=== PATIENT | female | born 1975 | race African-American/Black ===

== ENCOUNTER 2017-02-05 10:56 | Observation (INO) | payer OTHER ==
--- NOTE | 2017-02-05 11:25 | PDOC ---
Attending Attestation - Resident Resident Name: Sherwin Abdul - HPI HPI: 02/05/17 14:38 41 y/o female presents to ED referred by her PCP after he noted tht pt had left side weakness and decreased senation on his physical exam.Pt also hd difficulty performing finger to nose during his exam. Pt also reported that she had an episode of loss of vision in her rt eye today lasting a few seconds. Pt went to see hep pcp who subsequently refered her to the ED for additional tests.Pt has a history of migraine headaches and as had a headache for the last week that is not resolving, pt describes a 8/10 headache,last took meds yesterady, pt taking imitrex with no relief of headache Pt denies fever, sob, chest pain - Physicial Exam PE: 02/05/17 14:43 HEENT:NCAT,ROBERT, EOMI neck: supple Lungs: + bs smitha cta Heart: S1S2 regula Abd: + bs abd soft no guarding or rigidity Neuro: Pt is alert and oriented x3, Ramirez's left side weakness, dec sensation on the left side, pt with rt hemianopsia,PT with NIHSS of 2, nl gait - Critical Care Time Total Critical Care Time: 30 Critical Care Statement: The care of this patient involved high complexity decision making to prevent further life threatening deterioration of the patient 's condition and/or to evalute & treat vital organ system(s) failure or risk of failure. - Medical Decision Making 02/05/17 14:49 41 y/o female presents to ED for evaluation of a headache x 1 week, loss of vision today around 4am lasted about 5 seconds, pt also has new left side weakness and dec sensation 02/05/17 14:[address] of head immediately to r/o acute cva/vs TIA, vs otehr cranial abnormality explainung her severe headache, vision loss. Ct results noted, case discussed with Neurology recommends admission pt may be having an acute cva but is out o the window for TPA, He wants pt to receive depakote 500mg now. along with a baby ASA, plavix 75 mg and IV fluid. If this does not help her headache he also recommends giving her 1 gram of IV magnesium NIH Stroke Scale - Last Known Well Date/Time & Onset Date Last Known Well: 02/05/17 - Initial Evaluation Ask patient to open & close eyes; make fist and let go: Obeys both correctly Best gaze (horizontal eye movement): Normal Visual field testing: Partial hemianopia Facial paresis (Show teeth/raise eyebrows/close eyes tight): Normal symmetrical movement Motor Function: Left Arm: Normal Motor Function: Right Arm: Normal (extends arm 90 (or 45) degrees for 10 seconds without drift Motor Function: Left Leg: Normal (extends leg 30 degrees for 5 seconds without drift) Motor Function: Right Leg: Normal (extends leg 30 degrees for 5 seconds without drift) Limb Ataxia: No ataxia Sensory(Use pinprick test arms,legs,trunk,face/side to side): Mild to moderate decrease in sensation Best language (Describe picture, name items, read sentences): No Aphasia Dysarthria (read several words): Normal articulation Extinction and Inattention: No abnormality
[2017-02-05 12:09] LABS: INR 1.04 (0.82-1.09); PROTHROMBIN TIME (PATIENT) 11.4 SEC (9.98-11.88)
[2017-02-05 12:15] LABS: TROPONIN I < 0.02 ng/ml (0.00-0.05)
[2017-02-05 12:18] LABS: EOSINOPHIL 1.9 % (0-4.5); MCH 26.5 pg (25.7-33.7); MCHC 32.1 g/dl (32.0-36.0); MEAN CELL VOLUME 82.6 fl (80-96); MEAN PLT VOLUME 7.6 fl (7.5-11.1); NEUTROPHILS 47.3 % (42.8-82.8); PLATELET COUNT 321 K/MM3 (134-434); RDW 16.2 % (11.6-15.6)
--- NOTE | 2017-02-05 12:20 | PDOC ---
History of Present Illness <Bianca Corbin - Last Filed: 02/05/17 15:04> - General History Source: Patient Exam Limitations: No Limitations - History of Present Illness Initial Comments: 02/05/17 12:19 The patient is a 41F with a PMH of asthma and migraines is presenting to the ED with neurologic complaints from her PCP's office. The patient states that 1 week ago she began to develop a worsening headache. She has a hx of migraines and takes Imitrex for this, and when this does not work, she takes excederin. She says she tried to take these medications with no relief. The patient states that 4 am this morning, she could not see out of her R eye. This lasted for a few seconds then went back to normal. At the same time, she states that she had L arm numbness and tingling, which she describes as a "weird feeling" and is still present. She states that her headaches have never lasted this long and have never experienced these symptoms with her headaches. Surg: bonita, gastric bypass, appy Allergies: PCNS Social: Does not smoke, drink, use recreational drugs <Sherwin Abdul - Last Filed: 02/05/17 15:18> - General Chief Complaint: CVA/TIA Stated Complaint: PCP SENT/POSS STROKE Time Seen by Provider: 02/05/17 11:23 NIH Stroke Scale - Last Known Well Date/Time & Onset Date Last Known Well: 02/05/17 Time Last Known Well: 04:00 - Initial Evaluation Level of consciousness: Alert Ask patient the month and their age: Answers both correctly Ask patient to open & close eyes; make fist and let go: Obeys both correctly Best gaze (horizontal eye movement): Normal Visual field testing: Partial hemianopia Facial paresis (Show teeth/raise eyebrows/close eyes tight): Normal symmetrical movement Motor Function: Left Arm: Normal Motor Function: Right Arm: Normal (extends arm 90 (or 45) degrees for 10 seconds without drift Motor Function: Left Leg: Normal (extends leg 30 degrees for 5 seconds without drift) Motor Function: Right Leg: Normal (extends leg 30 degrees for 5 seconds without drift) Limb Ataxia: No ataxia Sensory(Use pinprick test arms,legs,trunk,face/side to side): Mild to moderate decrease in sensation Best language (Describe picture, name items, read sentences): No Aphasia Dysarthria (read several words): Normal articulation Extinction and Inattention: No abnormality - Total Score NIH Stroke Scale Score: 2 <Sherwin Abdul - Last Filed: 02/05/17 15:18> Past History <Bianca Corbin - Last Filed: 02/05/17 15:04> - Past Medical History Asthma: Yes Other medical history: MIGRANES - Surgical History Appendectomy: Yes Cholecystectomy: Yes Gastric Stapling: (GASTRIC BYPASS) - Reproductive History (#): 5 Para: 2 Cervical CA: No Dysfunctional Uterine Bleeding: No Ectopic : No Endometrial CA: No Polycystic Ovaries: No Therapeutic (s) & number: No Tubal Ligation: No Spontaneous : 0 - Immunization History Td Vaccination: No - Psycho/Social/Smoking Cessation Hx Anxiety: No Suicidal Ideation: No Smoking Status: No Smoking History: Never smoked Have you smoked in the past 12 months: No Number of Cigarettes Smoked Daily: 0 Hx Alcohol Use: Yes Drug/Substance Use Hx: No Substance Use Type: Alcohol <Sherwin Abdul - Last Filed: 02/05/17 15:18> - Past Medical History Allergies/Adverse Reactions: Allergies Allergy/AdvReac Type Severity Reaction Status Date / Time Penicillins Allergy Intermediate Verified 02/05/17 10:59 Home Medications: Ambulatory Orders Dicyclomine HCl [Bentyl] 10 mg PO TID PRN #5 capsule 01/07/16 Review of Systems - Review of Systems Able to Perform ROS?: Yes Is the patient limited Guinean proficient: No Constitutional: No: Chills, Fever HEENTM: Yes: Recent change in vision. No: Other (Head trauma) Respiratory: No: Shortness of Breath, SOB with Exertion, SOB at Rest Cardiac (ROS): No: Chest Pain, Palpitations ABD/GI: Yes: Nausea. No: Vomiting, Other (Abd pain) Neurological: No: Other (LOC) <Sherwin Abdul - Last Filed: 02/05/17 15:18> *Physical Exam - Vital Signs Last Vital Signs Temp Pulse Resp BP Pulse Ox 98.2 F 68 19 147/93 100 02/05/17 10:59 02/05/17 10:59 02/05/17 10:59 02/05/17 10:59 02/05/17 10:59 <Bianca Corbin - Last Filed: 02/05/17 15:04> - Vital Signs Last Vital Signs Temp Pulse Resp BP Pulse Ox 98.2 F 68 19 147/93 100 02/05/17 10:59 02/05/17 10:59 02/05/17 10:59 02/05/17 10:59 02/05/17 10:59 - Physical Exam General Appearance: Yes: Nourished, Appropriately Dressed. No: Apparent Distress Respiratory/Chest: positive: Lungs Clear, Normal Breath Sounds. negative: Chest Tender, Accessory Muscle Use Cardiovascular: positive: Regular Rhythm, Regular Rate, S1, S2 Gastrointestinal/Abdominal: positive: Flat, Soft. negative: Tender Extremity: positive: Normal Capillary Refill, Normal Inspection. 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, Fully Oriented, Alert, Normal Mood/ Affect, Numbness, Sensory Deficit (L sided), Finger to Nose (L sided deficits), Other (Motor strength decreased in L side) <Sherwin Abdul - Last Filed: 02/05/17 15:18> Heart Score/ECG Review - ECG Impressions Normal ECG: Yes <Sherwin Abdul - Last Filed: 02/05/17 15:18> ED Treatment Course - LABORATORY CBC & Chemistry Diagram: 02/05/17 11:35 02/05/17 11:30 - ADDITIONAL ORDERS Additional order review: Laboratory Results 02/05/17 02/05/17 02/05/17 11:35 11:35 11:30 INR Sodium 138 Potassium 4.0 Chloride 105 Carbon Dioxide 26 Anion Gap 7 L BUN 12 D Creatinine 0.8 Creat Clearance w eGFR > 60 Random Glucose 88 Calcium 9.0 Total Bilirubin 0.8 D AST 22 ALT 24 D Alkaline Phosphatase 82 Creatine Kinase 192 Creatine Kinase Index 0.7 CK-MB (CK-2) 1.300 Troponin I < 0.02 Total Protein 7.1 Albumin 3.8 Serum , Qual Urine HCG, Qual Negative 02/05/17 02/05/17 11:30 11:30 INR 1.04 Sodium Potassium Chloride Carbon Dioxide Anion Gap BUN Creatinine Creat Clearance w eGFR Random Glucose Calcium Total Bilirubin AST ALT Alkaline Phosphatase Creatine Kinase Creatine Kinase Index CK-MB (CK-2) Troponin I Total Protein Albumin Serum , Qual Negative Urine HCG, Qual 02/05/17 11:35 RBC 4.53 MCV 82.6 MCHC 32.1 RDW 16.2 H MPV 7.6 Neutrophils % 47.3 Lymphocytes % 41.0 H Monocytes % 8.8 Eosinophils % 1.9 Basophils % 1.0 - RADIOLOGY Radiology Studies Ordered: Category Date Time Status HEAD CT WITHOUT CONTRAST [CT] Stat CT Scan 02/05/17 11:28 Completed - Medications Given in the ED: ED Medications Discontinued Medications Generic Name Dose Route Start Last Admin Trade Name Judy PRN Reason Stop Dose Admin Aspirin 81 mg 02/05/17 13:20 02/05/17 13:32 Asa - PO 02/05/17 13:21 81 mg ONCE ONE Administration Sodium Chloride 1,000 ml 02/05/17 13:27 02/05/17 13:32 Normal Saline - IV 02/05/17 13:28 1,000 ml ONCE ONE Administration Valproate Sodium 500 mg 02/05/17 13:21 02/05/17 13:32 Depacon Injection - IVPB 02/05/17 13:22 500 mg ONCE ONE Administration <Bianca Corbin - Last Filed: 02/05/17 15:04> - LABORATORY CBC & Chemistry Diagram: 02/05/17 11:35 02/05/17 11:30 - ADDITIONAL ORDERS Additional order review: Laboratory Results 02/05/17 11:30 INR 1.04 <Sherwin Abdul - Last Filed: 02/05/17 15:18> Medical Decision Making - Medical Decision Making 02/05/17 12:30 Patient is a 41F with a PMH of migraines and asthma who presents to the ED from her PCP's office for suspected stroke/TIA. NIHSS is 2 for R hemianopsia and L sided sensory deficits. The patient also had tremorous L sided finger to nose and decreased motor strength in L side. I called CT and rapidly took the patient to get a CT. She is comfortable but complaining of a slight headache. I will update the patient as results come in. 02/05/17 15:17 Hemipalegic migraine vs. cerebral ischemia per neurologist. Headache has improved from 8 to 6. Magnesium ordered per neurologist recs. Pt is complaining of L sided floaters. R sided hemianopsia has resolved. <Sherwin Abdul - Last Filed: 02/05/17 15:18> *DC/Admit/Observation/Transfer - Discharge Dispostion Admit: Yes <Bianca Corbin - Last Filed: 02/05/17 15:04> - Discharge Dispostion Admit: Yes - Attestations Physician Attestion: 02/05/17 14:47 I, Dr. Sherwin Abdul, attest that this document has been prepared under my direction and personally reviewed by me in its entirety. I further attest, that it accurately reflects all work, treatment, procedures and medical decision -making performed by me. <Sherwin Abdul - Last Filed: 02/05/17 15:18> Diagnosis at time of Disposition: TIA (transient ischemic attack) Qualifiers: Transient cerebral ischemia type: unspecified Qualified Code(s): G45.9 - Transient cerebral ischemic attack, unspecified Cerebrovascular accident (CVA) Qualifiers: CVA mechanism: unspecified Qualified Code(s): I63.9 - Cerebral infarction, unspecified - Discharge Dispostion Condition at time of disposition: Stable - Referrals Referrals: Mahesh Kearney MD [Primary Care Provider] - iMki Price MD [Staff Physician] -
[2017-02-05 12:22] LABS: ALBUMIN 3.8 g/dl (3.4-5.0); ANION GAP 7 (8-16); BILIRUBIN,TOTAL 0.8 mg/dL (0.2-1.0); CO2 26 mmol/L (21-32); CREATININE 0.8 mg/dL (0.55-1.02); GLUCOSE,RANDOM 88 mg/dL (74-106); SGOT/AST 22 U/L (15-37); SGPT/ALT 24 U/L (12-78); TOT PROT 7.1 g/dl (6.4-8.2)
[2017-02-05 12:23] LABS: ALK PHOS 82 U/L (45-117)
[2017-02-05] MEDS ORDERED: ASPIRIN 81 MG CHEWABLE TABLETS PO ONE (13:20)
[2017-02-05] MEDS ORDERED: VALPROATE SODIUM 500 MG/5 ML VIAL IVPB ONE (13:21)
[2017-02-05] MEDS ORDERED: SODIUM CHLORIDE 0.9% 1000 ML INFUS.BAG IV ONE (13:27)
[2017-02-05] MEDS ORDERED: VALPROATE SODIUM 500 MG/5 ML VIAL ONE (13:35)
[2017-02-05] MEDS ORDERED: ASPIRIN 81 MG CHEWABLE TABLETS ONE (13:35)
[2017-02-05] MEDS ORDERED: ACETAMINOPHEN/CAFFEINE/BUTALBITAL 1 TAB PO ONE (15:01)
[2017-02-05] MEDS ORDERED: MAGNESIUM SULF 50% (8.12 MEQ/2 ML-1 GM VIAL) IVPB ONE (15:09)
[2017-02-05] MEDS ORDERED: ACETAMINOPHEN/CAFFEINE/BUTALBITAL 1 TAB ONE (15:11)
[2017-02-05] MEDS ORDERED: MAGNESIUM SULF 50% (8.12 MEQ/2 ML-1 GM VIAL) ONE (15:20)
[2017-02-05 16:42] LABS: ERYTHROCYTE SEDIMENTATION RATE 6 mm/hr (0-20)
[2017-02-05 17:19] VITALS: BMI 33.1
[2017-02-05] MEDS ORDERED: ACETAMINOPHEN/CAFFEINE/BUTALBITAL 1 TAB PO PRN (17:43)
[2017-02-05] MEDS ORDERED: diazePAM 5 MG TABLET PO PRN (19:12)
[2017-02-06] MEDS ORDERED: LORazepam 1 MG TABLET PO ONE (03:00)
[2017-02-06 06:48] LABS: THYROID STIMULATING HORMONE 1.53 uIU/ml (0.358-3.74)
--- NOTE | 2017-02-06 09:04 | HP ---
Admitting History and Physical - Primary Care Physician PCP: Mahesh Kearney - Admission Chief Complaint: headaches and weakness, numbness History of Present Illness: ER HISTORY HPI: 02/05/17 14:38 41 y/o female presents to ED referred by her PCP after he noted tht pt had left side weakness and decreased senation on his physical exam.Pt also hd difficulty performing finger to nose during his exam. Pt also reported that she had an episode of loss of vision in her rt eye today lasting a few seconds. Pt went to see hep pcp who subsequently refered her to the ED for additional tests.Pt has a history of migraine headaches and as had a headache for the last week that is not resolving, pt describes a 8/10 headache,last took meds yesterady, pt taking imitrex with no relief of headache Pt denies fever, sob, chest pain Pt examined Seen by Dr Serrato for left sided weakness and numbness that occurred yesterday. She also had a severe migraine headache associated with it. Has been getting severe right sided headaches , yesterday had decreased vision of right eye. She ususally gets headaches about once weekly , starts at left side and moves to right side of face. Weakness and numbness of left side occurred yesterday and lasted for about half hour. 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 denies: Chills, Fever Neurological: reports: Headache, Numbness, Weakness. denies: Change in Speech, Incoordination, Unsteady Gait Endocrine: denies: Flushing Physical Examination Vital Signs: Vital Signs Temperature 97.9 F 02/06/17 06:08 Pulse Rate 60 02/06/17 08:09 Respiratory Rate 18 02/06/17 08:09 Blood Pressure 123/81 02/06/17 08:09 O2 Sat by Pulse Oximetry (%) 100 02/06/17 06:10 Constitutional: Yes: No Distress, Calm Cardiovascular: Yes: Regular Rate and Rhythm Respiratory: Yes: CTA Bilaterally Gastrointestinal: Yes: Normal Bowel Sounds, Soft. No: Hyperactive Bowel Sounds , Tenderness Edema: No Neurological: Yes: Alert, Oriented. No: Aphasia, Ataxia, Numbness, Weakness Psychiatric: Yes: Alert, Oriented Labs: Laboratory Last Values WBC 4.0 K/mm3 (4.0-10.0) 02/05/17 11:35 RBC 4.53 M/mm3 (3.60-5.2) 02/05/17 11:35 Hgb 12.0 GM/dL (10.7-15.3) D 02/05/17 11:35 Hct 37.4 % (32.4-45.2) 02/05/17 11:35 MCV 82.6 fl (80-96) 02/05/17 11:35 MCH 26.5 pg (25.7-33.7) 02/05/17 11:35 MCHC 32.1 g/dl (32.0-36.0) 02/05/17 11:35 RDW 16.2 % (11.6-15.6) H 02/05/17 11:35 Plt Count 321 K/MM3 (134-434) 02/05/17 11:35 MPV 7.6 fl (7.5-11.1) 02/05/17 11:35 Neutrophils % 47.3 % (42.8-82.8) 02/05/17 11:35 Lymphocytes % 41.0 % (8-40) H 02/05/17 11:35 Monocytes % 8.8 % (3.8-10.2) 02/05/17 11:35 Eosinophils % 1.9 % (0-4.5) 02/05/17 11:35 Basophils % 1.0 % (0-2.0) 02/05/17 11:35 ESR 6 mm/hr (0-20) 02/05/17 11:35 INR 1.04 (0.82-1.09) 02/05/17 11:30 Sodium 138 mmol/L (136-145) 02/05/17 11:30 Potassium 4.0 mmol/L (3.5-5.1) 02/05/17 11:30 Chloride 105 mmol/L (98-107) 02/05/17 11:30 Carbon Dioxide 26 mmol/L (21-32) 02/05/17 11:30 Anion Gap 7 (8-16) L 02/05/17 11:30 BUN 12 mg/dL (7-18) D 02/05/17 11:30 Creatinine 0.8 mg/dL (0.55-1.02) 02/05/17 11:30 Creat Clearance w eGFR > 60 (>60) 02/05/17 11:30 Random Glucose 88 mg/dL (74-106) 02/05/17 11:30 Hemoglobin A1c % 5.6 % (4.8-6.0) 02/06/17 05:10 Calcium 9.0 mg/dL (8.5-10.1) 02/05/17 11:30 Magnesium 2.2 mg/dL (1.8-2.4) 02/05/17 15:09 Total Bilirubin 0.8 mg/dL (0.2-1.0) D 02/05/17 11:30 AST 22 U/L (15-37) 02/05/17 11:30 ALT 24 U/L (12-78) D 02/05/17 11:30 Alkaline Phosphatase 82 U/L (45-117) 02/05/17 11:30 Creatine Kinase 192 IU/L (26-192) 02/05/17 11:35 Creatine Kinase Index 0.7 % (0.0-5.0) 02/05/17 11:35 CK-MB (CK-2) 1.300 ng/ml (0.5-3.6) 02/05/17 11:35 Troponin I < 0.02 ng/ml (0.00-0.05) 02/05/17 11:35 Total Protein 7.1 g/dl (6.4-8.2) 02/05/17 11:30 Albumin 3.8 g/dl (3.4-5.0) 02/05/17 11:30 Triglycerides 47 mg/dL (35-160) 02/06/17 05:10 Cholesterol 123 mg/dL (50-200) 02/06/17 05:10 Total LDL Cholesterol 31 mg/dL (5-100) 02/06/17 05:10 HDL Cholesterol 82 mg/dL (40-60) H 02/06/17 05:10 Vitamin B12 271 pg/ml (180-914) 02/06/17 05:10 TSH 1.53 uIU/ml (0.358-3.74) D 02/06/17 05:10 Serum , Qual Negative 02/05/17 11:30 Urine HCG, Qual Negative 02/05/17 11:35 Imaging - Results Cat Scan: Report Reviewed MRI: Report Reviewed EKG: Image Reviewed (sinus) Problem List - Problems (1) TIA (transient ischemic attack) Code(s): G45.9 - TRANSIENT CEREBRAL ISCHEMIC ATTACK, UNSPECIFIED Qualifiers: Transient cerebral ischemia type: unspecified Qualified Code(s): G45.9 - Transient cerebral ischemic attack, unspecified (2) Complicated migraine Code(s): G43.109 - MIGRAINE WITH AURA, NOT INTRACTABLE, W/O STATUS MIGRAINOSUS (3) Internal carotid aneurysm Code(s): I67.1 - CEREBRAL ANEURYSM, NONRUPTURED Assessment/Plan PLAN admit for observation received magnesium, depakote in ER Neurology eval MRI brain noted-- has rt internal carotid artery aneurysm-- will need MRA Carotid doppler done and results pending OOB DVT prophylaxis-- scd
[2017-02-06] MEDS: ASPIRIN 81 MG CHEWABLE TABLETS PO SCH (10:00)
--- NOTE | 2017-02-06 11:00 | CON.NEURO ---
Consult Reason for Consultation:: headache - History of Present Illness Chief Complaint: KWONG History of Present Illness: The patient is a 41F with a PMH of asthma and migraines is presenting to the ED with neurologic complaints from her PCP's office. She has h/o migraine KWONG for years but The patient states that 1 week ago she began to develop a worsening headache. She has a hx of migraine for years but her KWONG has been worsening lately , and the frequency of KWONG increased gradually and since 1 week ago is constant , she reports seeing black spot on the R eye prior to KWONG ; KWONG associated w L UE heaviness , tingling of her L hand ; KWONG travels from R to L hemisphere and more severe photophobia ; she states her usual migraine KWONG is less severe in intensity and wo weakness or visual symptoms ; this was not worse KWONG of her life. She reports bad smell triggers her KWONG ; she c/o neck pain at the R side traveling to her UE; has had L CTS sx in the past July . Her KWONG is subsided now ; 12/25. Surg: bonita, gastric bypass, L CTS past Jul. Allergies: PCNS Social: Does not smoke, drink, use recreational drugs - Past Medical History ...LMP: 01/29/17 ...: No - Alcohol/Substance Use Hx Alcohol Use: Yes (occasional) - Smoking History Smoking history: Never smoked Have you smoked in the past 12 months: No Aproximately how many cigarettes per day: 0 Home Medications - Allergies Allergies/Adverse Reactions: Allergies Allergy/AdvReac Type Severity Reaction Status Date / Time Penicillins Allergy Intermediate Verified 02/05/17 10:59 - Home Medications Home Medications: Ambulatory Orders Dicyclomine HCl [Bentyl] 10 mg PO TID PRN #5 capsule 01/07/16 Review of Systems - Review of Systems Constitutional: reports: No Symptoms Eyes: reports: No Symptoms HENT: reports: No Symptoms Neck: reports: No Symptoms, Other (R side pain) Cardiovascular: reports: No Symptoms Respiratory: reports: No Symptoms Gastrointestinal: reports: No Symptoms Genitourinary: reports: No Symptoms Musculoskeletal: reports: No Symptoms Psychiatric: reports: Other (h/o Depression) Physical Exam-Neuro Vital Signs: Vital Signs Temperature 97.9 F 02/06/17 06:08 Pulse Rate 60 02/06/17 08:09 Respiratory Rate 18 02/06/17 08:09 Blood Pressure 123/81 02/06/17 08:09 O2 Sat by Pulse Oximetry (%) 100 02/06/17 06:10 Constitutional: Yes: Well Nourished, Calm Neck: Yes: Supple Cardiovascular: Yes: Regular Rate and Rhythm Respiratory: Yes: CTA Bilaterally Psychiatric: Yes: WNL, Alert, Oriented Labs: INR, PTT INR 1.04 (0.82-1.09) 02/05/17 11:30 - Neuro Exam Level Of Consciousness: Yes: Oriented to Person, Oriented to Place, Oriented to Time Eyes: Yes: PERRLA Speech: WNL Dominant Hand: Right DTR's: 2+ Left Bicep, 2+ Right Bicep, 2+ Left Tricep, 2+ Right Tricep, 2+ Left Brachioradialis, 2+ Right Brachioradialis, 2+ Left Achilles, 2+ Right Achilles Babinski: Absent Response to light touch: Normal Response to pain prick: Normal Coordination: Normal: Finger to Nose, Heel to Muller Motor Strength: 5/5: Left Arm, Right Arm, Left Leg, Right Leg Gait: Normal NIH Stroke Scale - Total Score NIH Stroke Scale Score: 0 Imaging - Results MRI: Report Reviewed, Image Reviewed (2 mm R Int carotid aneurysm ; otherwise unremarkable.) Assessment/Plan 41 y/o w h/o migraine KWONG , L CTS s/p sx in Jul , depression p/w worsening KWONG and L UE weakness , numbness ; MRI excluded acute events, only incidental 2 mm R Int carotid aneurysm ; neuroexam unremarkable ; hx and exam 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 KWONG has subsided w depakote IV and Mag sulfate infusion . - MRA head and neck -Depakote ER 5oo mg qd for headache prevention which also will cover depression ( teratogenesis / side effect was d/w pt , she has no plan for and will inform her PCP or neurologist prior for planning for , was recommended to use contraception methods ) -Magnesium oxide 400 mg qd (NMDA receptor rupali which help w migraine specially w photophobia) -I advised her to drink plenty of water and does not exceed PRN mediaction more than few / week to avoid rebound KWONG) -EMG as OP to evaluate for cervical radiculopathy and CTS -PT for neck pain Health maintenance per primary team. Thank you for allowing us to participate in the care of this patient. Miki Carranza M.D. [phone]
[2017-02-06] MEDS ORDERED: DIVALPROEX NA *ER* EXTEND REL 500 MG TABLET.SA (FP) PO ONE ×2 (11:48→15:15)
[2017-02-06] MEDS: MAGNESIUM OXIDE 400 MG TABLET (FP) PO SCH ×2 (15:11→21:55)
[2017-02-06] MEDS ORDERED: diazePAM 5 MG TABLET PO ONE ×2 (18:33→21:30)
[2017-02-06] MEDS ORDERED: MELATONIN 1 MG TABLET PO PRN (21:20)
[2017-02-06] MEDS ORDERED: ZOLPIDEM TARTRATE 5 MG TABLET PO PRN (23:43)
--- NOTE | 2017-02-07 09:22 | EKG ---
Test Reason : Blood Pressure : / mmHG Vent. Rate : 062 BPM Atrial Rate : 062 BPM P-R Int : 138 ms QRS Dur : 062 ms QT Int : 406 ms P-R-T Axes : -04 014 006 degrees QTc Int : 412 ms POOR DATA QUALITY, INTERPRETATION MAY BE ADVERSELY AFFECTED NORMAL SINUS RHYTHM NORMAL ECG WHEN COMPARED WITH ECG OF 03-APR-2009 15:30, PREMATURE ATRIAL COMPLEXES ARE NO LONGER PRESENT ST NO LONGER ELEVATED IN INFERIOR LEADS T WAVE INVERSION LESS EVIDENT IN ANTERIOR LEADS Confirmed by MIRANDA ALCANTARA MD ([id number]) on 02/07/2017 9:21:50 AM Referred By: Confirmed By:MIRANDA ALCANTARA MD
[2017-02-07] MEDS: ASPIRIN 81 MG CHEWABLE TABLETS PO SCH (10:01)
[2017-02-07] MEDS: MAGNESIUM OXIDE 400 MG TABLET (FP) PO SCH (10:03)
--- NOTE | 2017-02-07 10:37 | DS ---
Physical Examination Vital Signs: Vital Signs Temperature 97.8 F 02/07/17 06:00 Pulse Rate 67 02/07/17 06:00 Respiratory Rate 18 02/07/17 06:00 Blood Pressure 123/77 02/07/17 06:00 O2 Sat by Pulse Oximetry (%) 99 02/07/17 05:21 Findings/Remarks: pt seen/ examined today. feels better chart reviewed. headache much better no other issues requests b12 inj -- says takes on monthly basis- sways due today. Constitutional: Yes: No Distress, Calm Eyes: Yes: Conjunctiva Clear Neck: Yes: Supple Cardiovascular: Yes: Regular Rate and Rhythm Respiratory: Yes: CTA Bilaterally Gastrointestinal: Yes: Soft Edema: No Neurological: Yes: WNL, Alert Discharge Summary Reason For Visit: TRANSIENT CEREBRAL ISCHEMIA; CEREBROVASCULAR ACCID Current Active Problems Cerebrovascular accident (CVA) (Acute) Complicated migraine (Acute) Internal carotid aneurysm (Acute) TIA (transient ischemic attack) (Acute) Hospital Course: pt admitted for status migrainous vs hemiplegic migraine. u/s ok ct head -ve mri- concern of aneurism -- likely artifact neuro consult taken. given depekote/ mag-- much better. mra today- if unremarkable- will d/c home today pt to follow with her pmd . depekote/ mag / fiorcet prescribed discussed with nursing staff pt agree with plan -- discussed with her. d/c time 35 min. Condition: Stable - Instructions Referrals: Miki Price MD [Staff Physician] - Mahesh Kearney MD [Primary Care Provider] - - Home Medications Comprehensive Discharge Medication List: Ambulatory Orders Dicyclomine HCl [Bentyl] 10 mg PO TID PRN #5 capsule 01/07/16 Zolpidem Tartrate [Ambien] 5 mg PO HS PRN 02/06/17 Acetaminophen/Caffeine/Butalb [Fioricet -] 1 tablet PO Q6H PRN #30 tablet MDD 3 02/07/17 Divalproex Sodium [Depakote ER] 500 mg PO DAILY #30 tab.er.24h MDD 1 02/07/17 Magnesium Oxide [Mag-Ox -] 400 mg PO DAILY #30 tablet 02/07/17
[2017-02-07] MEDS ORDERED: CYANOCOBALAMIN (VITAMIN B-12) 1000 MCG/1 ML VIAL IM ONE (10:50)
[2017-02-07 12:05] VITALS: BP 125/83; PULSE 77; TEMP 98.5
--- NOTE | 2017-02-11 13:22 | EKG ---
Test Reason : Blood Pressure : / mmHG Vent. Rate : 057 BPM Atrial Rate : 057 BPM P-R Int : 172 ms QRS Dur : 078 ms QT Int : 410 ms P-R-T Axes : 005 016 013 degrees QTc Int : 399 ms SINUS BRADYCARDIA CANNOT RULE OUT SEPTAL INFARCTION AGE INDETERMINATE VS LEAD POSITION. Confirmed by JUAN FRANCISCO VILLARREAL, JOSÉ ANTONIO ([id number]), web editor GUERDA LORD ([id number]) on 02/11/2017 1:21:54 PM Referred By: Confirmed By:JOSÉ ANTONIO CHICAS MD
== END 2017-02-07 14:12 | disposition home or self-care (01) ==
LOC: JER 10:56 → JERBED 14:48 → J2W 17:40 → J5S 02-06 14:59
PROVIDERS: ADMIT Internal Medicine; ATTEND Internal Medicine
PROC: 3E033GC Introduction of Other Therapeutic Substance into Peripheral Vein, Percutaneous Approach (ICD-10-PCS; principal; 2017-02-05)
PROC: 3E023GC Introduction of Other Therapeutic Substance into Muscle, Percutaneous Approach (ICD-10-PCS; 2017-02-05)
PROC: 3E0337Z Introduction of Electrolytic and Water Balance Substance into Peripheral Vein, Percutaneous Approach (ICD-10-PCS; 2017-02-05)
DX: G45.9 Transient cerebral ischemic attack, unspecified (principal); G43.109 Migraine with aura, not intractable, without status migrainosus; J45.909 Unspecified asthma, uncomplicated; Z88.0 Allergy status to penicillin
CPT/HCPCS: 36415; 70450-TC; 70551-TC; 80053; 80061; 82550; 82553; 82607; 83036; 83721; 83735; 84443; 84484; 84703; 85025; 85610; 85651; 93005; 93010; 93880-TC; 99285-25; G0378

== ENCOUNTER 2017-02-08 16:12 | Emergency (ER) | payer OTHER ==
[2017-02-08 16:20] VITALS: BP 119/73; PULSE 85; TEMP 98; BMI 31.8
[2017-02-08] MEDS ORDERED: diazePAM 5 MG TABLET PO ONE (16:36)
[2017-02-08] MEDS ORDERED: IBUPROFEN 600 MG TABLET (FP) PO ONE ×2 (16:36→16:48)
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
[2017-02-08] MEDS ORDERED: diazePAM 5 MG TABLET ONE (16:48)
== END 2017-02-08 17:49 | disposition home or self-care (01) ==
LOC: FER 16:12
DX: S46.912A Strain of unspecified muscle, fascia and tendon at shoulder and upper arm level, left arm, initial encounter (principal); S16.1XXA Strain of muscle, fascia and tendon at neck level, initial encounter; V43.52XA Car driver injured in collision with other type car in traffic accident, initial encounter; Y93.89 Activity, other specified; Y92.410 Unspecified street and highway as the place of occurrence of the external cause; J45.909 Unspecified asthma, uncomplicated; Z86.73 Personal history of transient ischemic attack (TIA), and cerebral infarction without residual deficits; Z98.84 Bariatric surgery status
CPT/HCPCS: 73030-TC-LT; 99281-25

== ENCOUNTER 2018-04-28 17:12 | Emergency (ER) | payer OTHER ==
[2018-04-28] MEDS ORDERED: KETOROLAC TROMETHAMINE 30 MG/1 ML VIAL IM ONE (17:51)
[2018-04-28] MEDS ORDERED: KETOROLAC TROMETHAMINE 30 MG/1 ML VIAL ONE (17:55)
--- NOTE | 2018-04-28 17:57 | PDOC ---
History of Present Illness - General Chief Complaint: Injury Stated Complaint: right leg pain s/p fall Time Seen by Provider: 04/28/18 17:16 History Source: Patient Exam Limitations: No Limitations - History of Present Illness Initial Comments: 04/28/18 17:54 42 year old female c/ no pmh p/w lower back pain. Yesterday, pt stepped out and missed a step. [place] sudden onset of lower back pain with shooting pain posteriorly to the left leg. Denies numbness, weakness. Denies urinary or bowel incontinence. Has taken flexeril with some relief. Because of persistence of pain, came into the ED. Past History - Past Medical History Allergies/Adverse Reactions: Allergies Allergy/AdvReac Type Severity Reaction Status Date / Time Penicillins Allergy Intermediate Verified 04/28/18 18:42 Home Medications: Ambulatory Orders Acetaminophen/Caffeine/Butalb [Fioricet -] 1 tablet PO Q6H PRN #30 tablet MDD 3 02/07/17 Ibuprofen 600 mg PO TID PRN #60 tablet MDD 3 02/08/17 Alprazolam [Xanax] 0.5 mg PO PRN PRN 04/28/18 Anemia: Yes Asthma: Yes Cancer: No Cardiac Disorders: No CVA: No COPD: No CHF: No Dementia: No Diabetes: No (but hypoglycemic sometimes) GI Disorders: Yes (lactose intolerant) Disorders: No HTN: No Hypercholesterolemia: No Liver Disease: No Seizures: No Thyroid Disease: No - Surgical History Appendectomy: Yes Cholecystectomy: Yes Gastric Stapling: (GASTRIC BYPASS) - Reproductive History (#): 5 Para: 2 Cervical CA: No Dysfunctional Uterine Bleeding: No Ectopic : No Endometrial CA: No Polycystic Ovaries: No Therapeutic (s) & number: No Tubal Ligation: No Spontaneous : 0 - Immunization History Td Vaccination: No Immunization Up to Date: Yes - Suicide/Smoking/Psychosocial Hx Smoking Status: No Smoking History: Never smoked Have you smoked in the past 12 months: No Number of Cigarettes Smoked Daily: 0 Hx Alcohol Use: Yes (occasional wine) Drug/Substance Use Hx: No Substance Use Type: None Hx Substance Use Treatment: No Review of Systems - Review of Systems Able to Perform ROS?: Yes Comments:: 04/28/18 17:55 GENERAL/CONSTITUTIONAL: [No fever or chills. No weakness. No weight change.] HEAD, EYES, EARS, NOSE AND THROAT: [No change in vision. No ear pain or discharge. No sore throat.] CARDIOVASCULAR: [No chest pain or shortness of breath.] RESPIRATORY: [No cough, wheezing, or hemoptysis.] GASTROINTESTINAL: [No nausea, vomiting, diarrhea or constipation. No rectal bleeding.] GENITOURINARY: [No dysuria, frequency, or change in urination.] MUSCULOSKELETAL: [No joint or muscle swelling or pain. No neck pain. + lower back pain. SKIN AND BREASTS: [No rash or easy bruising.] NEUROLOGIC: [No headache, vertigo, loss of consciousness, or loss of sensation.] PSYCHIATRIC: [No depression or anxiety.] ENDOCRINE: [No increased thirst. No abnormal weight change.] HEMATOLOGIC/LYMPHATIC: [No anemia, easy bleeding, or history of blood clots.] ALLERGIC/IMMUNOLOGIC: [No hives or skin allergy. No latex allergy.] *Physical Exam - Vital Signs Last Vital Signs Temp Pulse Resp BP Pulse Ox 98.1 F 98 H 18 140/97 100 04/28/18 17:14 04/28/18 17:14 04/28/18 17:14 04/28/18 17:14 04/28/18 17:14 - Physical Exam Comments: 04/28/18 17:55 GENERAL: Awake, alert, and fully oriented, in no acute distress HEAD: No signs of trauma EYES: EOMI, sclera anicteric, conjunctiva clear ENT: Auricles normal inspection, hearing grossly normal, nares paten NECK: Normal ROM, supple BACK: TTP ~L4-L5, no stepoffs appreciated. PELVIS: No tenderness at the hip or pelvis. Pelvis stable. EXTREMITIES: RLE: 2+ radial pulse. Sensation intact throughout. Full strength on dorsiflexion of great toe. No tenderness elicited on left knee, or left ankle, thigh, or foot. SLR positive 30 degrees left side. NEUROLOGICAL: Cranial nerves II through XII grossly intact. Normal speech, normal gait SKIN: Warm, Dry, normal turgor, no rashes or lesions noted. ED Treatment Course - RADIOLOGY Radiology Studies Ordered: Category Date Time Status LUMBAR SPINE CT W/O CONTRAST [CT] Stat CT Scan 04/28/18 17:51 Ordered Medical Decision Making - Medical Decision Making 04/28/18 17:56 Vital Signs Temp Pulse Resp BP Pulse Ox 98.1 F 98 H 18 140/97 100 04/28/18 17:14 04/28/18 17:14 04/28/18 17:14 04/28/18 17:14 04/28/18 17:14 The patient symptoms appear to be consistent with sciatica. However, given trauma, will evaluate with CT lumbar spine for fracture, herniated disk. Pain control and reassess. *DC/Admit/Observation/Transfer Diagnosis at time of Disposition: Lumbar spine strain Qualifiers: Encounter type: initial encounter Qualified Code(s): S39.012A - Strain of muscle, fascia and tendon of lower back, initial encounter - Discharge Dispostion Disposition: HOME Condition at time of disposition: Stable - Referrals - Patient Instructions Additional Instructions: For the pain you can take ibuprofen 3 tablets 3 times a day with food don't take on an empty stomach or Aleve 2 tablets twice a day. Return to the emergency department immediately with ANY new, persistent or worsening symptoms. Continue any medications as previously prescribed by your physician. You should follow up with your primary doctor as soon as possible regarding today's emergency department visit. . Please make sure your doctor reviews the results of your emergency evaluation. Thank you for coming to the Emergency Department today for your care. It was a pleasure to see you today. Please note that your evaluation is INCOMPLETE until you follow-up with your doctor. - Post Discharge Activity
[2018-04-28 18:00] VITALS: BP 140/97; PULSE 98; TEMP 98.1; BMI 31.8
--- NOTE | 2018-04-28 19:19 | PDOC ---
*Physical Exam - Vital Signs Last Vital Signs Temp Pulse Resp BP Pulse Ox 98.1 F 98 H 18 140/97 100 04/28/18 17:14 04/28/18 17:14 04/28/18 17:14 04/28/18 17:14 04/28/18 17:14 ED Treatment Course - ADDITIONAL ORDERS Additional order review: Laboratory Results 04/28/18 18:02 Urine HCG, Qual Negative - Medications Given in the ED: ED Medications Discontinued Medications Generic Name Dose Route Start Last Admin Trade Name Judy PRN Reason Stop Dose Admin Ketorolac Tromethamine 30 mg 04/28/18 17:51 04/28/18 18:29 Toradol Injection - IM 04/28/18 17:52 30 mg ONCE ONE Administration Progress Note - Progress Note Progress Note: Care of this patient was transferred to me from Dr. Gray at 1900 hrs.. This is a 42-year-old female who while walking on a step ana her back resulting in pain radiating from her low back down her right leg. Patient symptoms are consistent with sciatica-type pain. Patient likely herniated a disc. However a compression fracture is also part of the differential. Patient is getting a CAT scan of her lumbar and sacral spine. Patient was given pain medication and the plan is to discharge patient home. Patient did not complain of any cord compression symptoms. 20:30 Patient feels much better post pain medication. Patient's CAT scan was negative for any fracture or acute disc herniation or canal stenosis. Patient told to take ibuprofen or Aleve as directed on the bottle and follow-up with her primary care doctor. Patient given copy of her CAT scan *DC/Admit/Observation/Transfer Diagnosis at time of Disposition: Lumbar spine strain Qualifiers: Encounter type: initial encounter Qualified Code(s): S39.012A - Strain of muscle, fascia and tendon of lower back, initial encounter - Discharge Dispostion Disposition: HOME Condition at time of disposition: Stable Decision to Admit order: No - Referrals - Patient Instructions Additional Instructions: For the pain you can take ibuprofen 3 tablets 3 times a day with food don't take on an empty stomach or Aleve 2 tablets twice a day. Return to the emergency department immediately with ANY new, persistent or worsening symptoms. Continue any medications as previously prescribed by your physician. You should follow up with your primary doctor as soon as possible regarding today's emergency department visit. . Please make sure your doctor reviews the results of your emergency evaluation. Thank you for coming to the Emergency Department today for your care. It was a pleasure to see you today. Please note that your evaluation is INCOMPLETE until you follow-up with your doctor. - Post Discharge Activity
== END 2018-04-28 20:48 | disposition home or self-care (01) ==
LOC: FER 17:12
PROC: 3E0233Z Introduction of Anti-inflammatory into Muscle, Percutaneous Approach (ICD-10-PCS; principal; 2018-04-28)
DX: S39.012A Strain of muscle, fascia and tendon of lower back, initial encounter (principal); W18.39XA Other fall on same level, initial encounter; Y93.89 Activity, other specified; Y92.9 Unspecified place or not applicable; J45.909 Unspecified asthma, uncomplicated
CPT/HCPCS: 72131-TC; 84703; 99282-25

== ENCOUNTER 2018-05-17 04:58 | Day surgery (SDC) | payer OTHER ==
[2018-05-15 15:48] VITALS: BMI 33.6
[2018-05-17] MEDS ORDERED: ONDANSETRON 4 MG/2 ML VIAL IVPUSH PRN (13:16)
[2018-05-17] MEDS ORDERED: LACTATED RINGERS SOLUTION 1,000 ML IV SCH (13:30)
[2018-05-17] MEDS ORDERED: fentaNYL CITRATE 250 MCG/5 ML VIAL ONE (13:37)
[2018-05-17] MEDS ORDERED: ROCURONIUM BROMIDE 50 MG/5 ML VIAL ONE (13:37)
[2018-05-17] MEDS ORDERED: PROPOFOL 20 ML ONE (13:38)
[2018-05-17] MEDS ORDERED: MIDAZOLAM HCL 2 MG/2 ML SINGLE DOSE VIAL ONE (13:38)
--- NOTE | 2018-05-17 15:03 | HP ---
Past Medical History - Primary Care Physician PCP:: Fady Baires - Admission Chief Complaint: 42yo P2 admitted for sterilization, laparoscopic BTL. 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 Cardiovascular: No: AFIB, Aneurysm, Aortic Insufficiency, Aortic Stenosis, CAD, CHF, Deep Vein Thrombosis, HTN, Hyperlipdemia, GA, Mitral Insufficiency, Mitral Stenosis, Murmur, Pulmonary Hypertension, Other Pulmonary: Yes: Asthma Gastrointestinal: No: Ascites, Cancer, Constipation, Crohn's Disease, Diverticulitis, Diverticulosis, Esophageal Varices, Gastritis, GERD, GI Bleed, Hemorrhoids, Hiatal Hernia, Inflamatory Bowel Disease, Irritable Bowel Disease, Pancreatitis, Peptic Ulcer Disease, Ulcerative Colitis, Other Hepatobiliary: No: Cirrhosis, Cholelithiasis, Cholecystitis, Choledocholithiasis , Hepatitis A, Hepatitis B, Hepatitis C, Other Renal/: No: Renal Failure, Renal Inusuff, BPH, Cancer, Hematuria, Hemodialysis , Neurogenic Bladder, Renal Calculi, UTI, Other ...: 4 ...Para: 2 ...Spon : 2 Heme/Onc: Yes: Anemia Infectious Disease: No: AIDS, C-Diff, Herpes Zoster, HIV, MRSA, STD's, Tuberculosis, VREF, Other Psych: No: Addictions, Anxiety, Bipolar, Depression, Panic, Psychosis, Schizophrenia, Other Musculoskeletal: No: Bursitis, Chronic low back pain, Hemiparesis, Hemiplegia, Osteoarthritis, Paraplegia, Other Rheumatology: No: Fibromyalgia, Gout, Lupus, Rheumatoid Arthritis, Sarcoidosis, Vasculitis, Other ENT: No: Allergic Rhinitis, Sinusitis, Other Endocrine: No: [place]'s Disease, [place]'s Disease, Diabetes Insipidus, Diabetes Mellitus, Hyperparathyroidism, Hyperthyroidism, Hypothyroidism, Osteopenia, SIADH, Other Dermatology: No: Basal Cell, Cellulitis, Eczema, Melanoma, Psoriasis, Squamous Cell, Other - Past Surgical History Past Surgical History: Yes: Appendectomy, Bariatric Surgery (Gastric bypass), Breast Biopsy (Breast reduction), Cholecystectomy Hx Myomectomy: No Hx Transabdominal Cerclage: No Additional Surgical History: carpal tunnel release - Smoking History Smoking history: Never smoked Have you smoked in the past 12 months: No Aproximately how many cigarettes per day: 0 - Alcohol/Substance Use Hx Alcohol Use: Yes (occasional wine) History of Substance Use: reports: None - Social History Usual Living Arrangement: Yes: Alone ADL: Independent 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 [Redisol] 1,000 mcg IJ ASDIR 05/15/18 Cyclobenzaprine HCl [Flexeril 10 mg] 10 mg PO BID PRN 05/15/18 Review of Systems - Review of Systems Constitutional: reports: No Symptoms Eyes: reports: No Symptoms HENT: reports: No Symptoms Neck: reports: No Symptoms Cardiovascular: reports: No Symptoms Respiratory: reports: No Symptoms Gastrointestinal: reports: No Symptoms Genitourinary: reports: No Symptoms Breasts: reports: No Symptoms Reported Musculoskeletal: reports: No Symptoms Integumentary: reports: No Symptoms Neurological: reports: No Symptoms Endocrine: reports: No Symptoms Hematology/Lymphatic: reports: No Symptoms Psychiatric: reports: No Symptoms 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: Vital Signs Temperature 98.7 F 05/17/18 12:50 Pulse Rate 90 05/17/18 12:50 Respiratory Rate 18 05/17/18 12:50 Blood Pressure 134/86 05/17/18 12:50 O2 Sat by Pulse Oximetry (%) 100 05/17/18 12:49 Constitutional: Yes: Well Nourished, No Distress, Calm Eyes: Yes: WNL, Conjunctiva Clear, EOM Intact HENT: Yes: WNL, Atraumatic, Normocephalic Neck: Yes: WNL, Supple, Trachea Midline Cardiovascular: Yes: WNL, Regular Rate and Rhythm Respiratory: Yes: WNL, Regular, CTA Bilaterally Gastrointestinal: Yes: WNL, Normal Bowel Sounds, Soft ...Rectal Exam: Yes: Deferred Renal/: Yes: WNL External Genitalia: Yes: Normal Internal Exam Deferred: No Vaginal Exam: Yes: Normal Cervix: Yes: Normal Uterus: Yes: Normal, Freely Moveable Musculoskeletal: Yes: WNL Extremities: Yes: WNL Edema: No Integumentary: Yes: WNL Neurological: Yes: WNL, Alert, Oriented ...Motor Strength: WNL Psychiatric: Yes: WNL, Alert, Oriented Assessment/Plan 42yo P2 admitted for sterilization, laparoscopic BTL. We discussed the risks, benefits, alternatives of surgery. The pt declined to use IUD and is not a candidate for hormonal contraception (which she does not want anyway).The risks of infection, bleeding, scarring, injury to underlying organs, failed sterilizaton, etc explained.
[2018-05-17] MEDS ORDERED: BUPIVACAINE HCL/PF 0.5% (5MG/ML) 10 ML VIAL IJ ONE (15:07)
[2018-05-17] MEDS ORDERED: GLYCOPYRROLATE 0.2 MG/1 ML VIAL ONE (15:29)
[2018-05-17] MEDS ORDERED: NEOSTIGMINE METHYLSULFATE 0.5 MG/ML - 10 ML MDV ONE (15:29)
--- NOTE | 2018-05-17 16:17 | OP ---
Operative Note - Note: Operative Date: 05/17/18 Pre-Operative Diagnosis: Voluntary sterilization Operation: Laparoscopic BTL Findings: Normal uterus, tubes, ovaries. Normal visualized segments of bowel, liver, stomach Post-Operative Diagnosis: Same as Pre-op Surgeon: Fady Baires Restoration Officer: Lay Lang Anesthesiologist/EMERGENCY MEDICAL DISPATCHER: Richie Garsia Anesthesia: General Estimated Blood Loss (mls): 5 Drains & Tubes with Location: Ware cath Drains, Volume Out (mls): 400 Blood Volume Replaced (mls): 0 Fluid Volume Replaced (mls): 800 Operative Report Dictated: Yes
[2018-05-17] MEDS ORDERED: ALPRAZolam 0.25 MG TABLET PO PRN (17:33)
[2018-05-17 17:46] VITALS: TEMP 97.8
--- NOTE | 2018-05-17 18:21 | OP ---
DATE OF OPERATION: 05/17/2018 PREOPERATIVE DIAGNOSIS: Voluntary sterilization. POSTOPERATIVE DIAGNOSIS: Voluntary sterilization. PROCEDURE: Laparoscopic bilateral tubal ligation via fulguration. SURGEON: Dina Baires MD LAP LAYER: Lay Lang MD INDICATION FOR ASSISTANCE: Obese patient with multiple medical problems as well as multiple previous abdominal surgeries, necessitating assistance to ensure successful and safe surgery. ANESTHESIOLOGIST: SANDRA Fabian ANESTHESIA: General. COMPLICATIONS: None. ESTIMATED BLOOD LOSS: 5 mL. INTRAVENOUS FLUIDS: 800 mL. URINE OUTPUT: 400 mL of clear urine at the end of the procedure. PATHOLOGY: None. FINDINGS: Examination under anesthesia revealed a small anteverted uterus with no pelvic or adnexal masses. Laparoscopy revealed normal uterus, bilateral fallopian tubes, and ovaries. Normal visualized segments of bowel, liver and stomach. DESCRIPTION OF PROCEDURE: The patient was met preoperatively. The risks, benefits, and alternatives of surgery were discussed in detail. All questions were answered. The patient was brought to the OR with IV running. She was placed on the surgical table in the supine position. General endotracheal anesthesia was achieved without difficulty. The patient was then placed in a dorsal lithotomy position using adjustable Ernesto stirrups. She was examined under anesthesia with the findings as described above. The timeout procedure was conducted as per standard protocol. The patient was then prepped and draped in the usual sterile fashion. The Ware catheter was inserted inside the bladder and left to drain to gravity. A uterine manipulator was inserted with sterile technique and without complications. The surgeons then proceeded with the laparoscopy. A 5-mm infraumbilical incision was made with a knife. An Optiview trocar was then used to gain entry into the peritoneal cavity. Under direct visualization, atraumatic entry was confirmed. Pneumoperitoneum was induced without complication. A second 5-mm trocar was inserted to approximately 2 cm above the pubic symphysis under direct visualization and without complications. A bipolar cautery was then used to grasp the right fallopian tube. A midportion of the right fallopian tube was cauterized for the length of approximately 3 cm. Appropriate cautery effect was noted. Good hemostasis was observed. The left fallopian tube was also isolated. A mid portion of the left fallopian tube was cauterized for the length of approximately 3 cm and appropriate cautery effect was noted. Good hemostasis was observed. The procedure was then terminated. All of the instruments were removed from the patient. Sponge, lap, and instrument counts were correct. The Ware catheter was removed. The uterine manipulator was removed. The patient was returned to the supine position. She was transferred to the recovery room, awake and in stable condition. DINA BAIRES M.D. [id number]
[2018-05-17 18:36] VITALS: BP 142/79; PULSE 99
== END 2018-05-17 18:30 | disposition home or self-care (01) ==
LOC: JASU-SURG 04:58
PROVIDERS: ATTEND Obstetrics & Gynecology
PROC: 0U574ZZ Destruction of Bilateral Fallopian Tubes, Percutaneous Endoscopic Approach (ICD-10-PCS; principal; 2018-05-17 14:30)
DX: Z30.2 Encounter for sterilization (principal)
CPT/HCPCS: 84703; 86850; 86900; 86901; 94760

== ENCOUNTER 2018-05-24 18:08 | Inpatient (IN) | payer OTHER ==
[2018-05-24] MEDS ORDERED: morphine CARPU-JECT 4 MG/1 ML DISP.SYRIN IVPUSH ONE ×2 (18:33→22:25)
[2018-05-24] MEDS ORDERED: ONDANSETRON 4 MG/2 ML VIAL IVPUSH ONE (18:34)
[2018-05-24] MEDS ORDERED: MORPHINE SULFATE 2 MG/ML VIAL ONE (18:36)
[2018-05-24] MEDS ORDERED: ONDANSETRON 4 MG/2 ML VIAL ONE (18:36)
--- NOTE | 2018-05-24 18:42 | PDOC ---
History of Present Illness - General Chief Complaint: Pain Stated Complaint: ABD PAIN Time Seen by Provider: 05/24/18 18:31 History Source: Patient Exam Limitations: No Limitations - History of Present Illness Initial Comments: 05/24/18 18:35 The patient is a 42F with a PMH of asthma and is s/p tubal ligation who presents with acute onset abdominal pain. The patient describes a sharp pain which starts in her abdomen "diffusely" and radiates to her R flank, is constant , and worsening. She denies any fevers, chills, CP, SOB but admits to nausea and NBNB vomiting. She is unsure if she has hematuria because she is currently on her period. She has never had pain like this in the past. She has no history of nephrolithiasis. Past History - Past Medical History Allergies/Adverse Reactions: Allergies Allergy/AdvReac Type Severity Reaction Status Date / Time Penicillins Allergy Intermediate Verified 05/24/18 18:20 Home Medications: Ambulatory Orders Ibuprofen 600 mg PO TID PRN #60 tablet MDD 3 02/08/17 Alprazolam [Xanax] 0.5 mg PO PRN PRN 04/28/18 Aspirin/Acetaminophen/Caffeine [Excedrin Extra Strength Caplet] 1 each PO PRN Bupropion HCl [Wellbutrin Xl] 300 mg PO DAILY 05/15/18 Cyanocobalamin Vit B-12 Inj. [Redisol] 1,000 mcg IJ ASDIR 05/15/18 Cyclobenzaprine HCl [Flexeril 10 mg] 10 mg PO BID PRN 05/15/18 Oxycodone HCl/Acetaminophen [Percocet 5-325 mg Tablet -] 1 - 2 tab PO Q6H PRN # 20 tab MDD 8 05/17/18 Anemia: Yes Asthma: Yes Cancer: No Cardiac Disorders: No CVA: Yes (TIA 2016) COPD: No CHF: No Dementia: No Diabetes: No (but hypoglycemic sometimes) GI Disorders: Yes (lactose intolerant) Disorders: No HTN: No Hypercholesterolemia: No Liver Disease: No Psychiatric Problems: (Anxiety) Seizures: No Thyroid Disease: No - Surgical History Abdominal Surgery: Yes (GASTRIC BYPASS) Appendectomy: Yes Cholecystectomy: Yes Gastric Stapling: (GASTRIC BYPASS) - Reproductive History (#): 5 Para: 2 Cervical CA: No Dysfunctional Uterine Bleeding: No Ectopic : No Endometrial CA: No Polycystic Ovaries: No Therapeutic (s) & number: No Tubal Ligation: No Spontaneous : 0 - Immunization History Td Vaccination: No Immunization Up to Date: Yes - Suicide/Smoking/Psychosocial Hx Smoking Status: No Smoking History: Never smoked Have you smoked in the past 12 months: No Number of Cigarettes Smoked Daily: 0 Information on smoking cessation initiated: No Hx Alcohol Use: No Drug/Substance Use Hx: No Substance Use Type: None Hx Substance Use Treatment: No Review of Systems - Review of Systems Able to Perform ROS?: Yes Comments:: 05/24/18 19:13 GENERAL/CONSTITUTIONAL: No fever or chills. No weakness. HEAD, EYES, EARS, NOSE AND THROAT: No change in vision. No ear pain or discharge. No sore throat. CARDIOVASCULAR: No chest pain, palpitations, or lightheadedness. RESPIRATORY: No cough, wheezing, shortness of breath, or hemoptysis. GASTROINTESTINAL: Positive for nausea, vomiting, and abdominal pain. GENITOURINARY: No dysuria, frequency, hematuria, or change in urination. MUSCULOSKELETAL: No joint or muscle swelling or pain. No neck or back pain. SKIN: No rash or lesions. NEUROLOGIC: No headache, numbness, tingling, focal weakness, loss of consciousness, or change in strength/sensation. Is the patient limited Spanish proficient: No *Physical Exam - Vital Signs Last Vital Signs Temp Pulse Resp BP Pulse Ox 97.6 F 88 16 154/83 100 05/24/18 18:11 05/24/18 18:11 05/24/18 18:11 05/24/18 18:11 05/24/18 18:11 - Physical Exam Comments: 05/24/18 19:14 GENERAL: Well developed, well nourished. Awake and alert. In moderate distress. HEENT: Normocephalic, atraumatic. Hearing grossly normal. Moist mucous membranes. PERRLA, EOMI. No conjunctival pallor. Sclera are non-icteric. NECK: Supple. Full ROM. No JVD. CARDIOVASCULAR: Regular rate and rhythm. No murmurs, rubs, or gallops. PULMONARY: No evidence of respiratory distress. Lungs clear to auscultation bilaterally. No wheezing, rales or rhonchi. ABDOMINAL: Soft. TTP diffusely in abdomen. Non-distended. No rebound or guarding. GENITOURINARY: R CVA tenderness. MUSCULOSKELETAL: Normal range of motion at all joints. No bony deformities or tenderness. EXTREMITIES: No cyanosis. No clubbing. No edema. No calf tenderness or swelling. SKIN: Warm and dry. Normal capillary refill. No rashes. No jaundice. NEUROLOGICAL: Alert, awake, appropriate. Cranial nerves 2-12 grossly intact. Normal speech. Gait is normal without ataxia. PSYCHIATRIC: Cooperative. Good eye contact. Appropriate mood and affect. ED Treatment Course - LABORATORY CBC & Chemistry Diagram: 05/24/18 19:18 05/24/18 19:18 - RADIOLOGY Radiology Studies Ordered: Category Date Time Status ABDOMEN & PELVIS CT WITH CONTR [CT] Stat CT Scan 05/24/18 18:32 Ordered Medical Decision Making - Medical Decision Making 05/24/18 19:14 The patient is a 42F who presents to the ER s/p tubal ligation 6 days ago with abdominal pain. Concern for perforation, injury in abdomen 2/2 surgery, uretal injury, and nephrolithiasis. Pending labs and CTAP with IV contrast. May change to noncon as IV contrast will limit view of nephrolithiasis. 05/24/18 19:33 Pt signed out to Dr. Milan for further care.
--- NOTE | 2018-05-24 18:45 | PDOC ---
Attending Attestation - Resident Resident Name: TachodankSherwin - ED Attending Attestation I have performed the following: I have examined & evaluated the patient, The case was reviewed & discussed with the resident, I agree w/resident's findings & plan, Exceptions are as noted - HPI HPI: 05/27/18 16:33 42 y/o female s/p tubo-ligation one week prior presents with sudden onset of sever abd pain, n. pain is constant, radiating to the back. - Physicial Exam PE: 05/24/18 22:00 Patient is awake and alert, well-nourished, in mild distress Normocephalic, atraumatic PERRLA, EOMI, no scleral icterus CTA RRR Abdomen soft, nondistended, mild periumbilical, right lower quadrant and right CVA tenderness to palpation No lower extremity edema No focal neurological deficits - Medical Decision Making 05/24/18 22:00 Patient is a 42-year-old female, status post tubal ligation 4 days previously presents to the ER with sudden onset of severe right-sided abdominal pain radiating to the right flank. Patient writhing in pain initial evaluation requiring parenteral pain meds for evaluation. Differential diagnoses includes perforated viscus versus kidney stone versus hydronephrosis related to tubal ligation versus intra-abdominal abscess. We'll obtain CBC/CMP/UA. Will hydrate. Will obtain CT of abdomen and pelvis. Will reassess. 05/24/18 23:08 Patient with several pockets of intraperitoneal air, edematous mesentery and thickening of the ileocecal valve on CT that and pelvis. Given the sudden onset of symptoms, diffuse abdominal pain, no immediate post procedural complications , I suspect perforated viscus. 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 We'll administer IV antibiotics and IV fluids. 05/25/18 00:[address] Hammonds of surgery. No peritoneal signs at this time, and he does not suspect a viscus perforation at this time. he Does recommend serial abdominal exams and reevaluation. We'll place and observation at this time.
[2018-05-24] MEDS ORDERED: KETOROLAC TROMETHAMINE 30 MG/1 ML VIAL ONE (18:49)
[2018-05-24] MEDS ORDERED: KETOROLAC TROMETHAMINE 30 MG/1 ML VIAL IVPUSH ONE (18:50)
[2018-05-24 19:26] LABS: BASO % 1.1 % (0-2.0); EOS % 2.4 % (0-4.5); HEMATOCRIT 35.2 % (32.4-45.2); HEMOGLOBIN 11.5 GM/dL (10.7-15.3); LYMPH % 24.8 % (8-40); MCH 26.1 pg (25.7-33.7); MCHC 32.6 g/dl (32.0-36.0); MEAN CELL VOLUME 80.1 fl (80-96); MEAN PLT VOLUME 7.6 fl (7.5-11.1); MONO % 6.3 % (3.8-10.2); NEUT % 65.4 % (42.8-82.8); PLATELET COUNT 328 K/MM3 (134-434); RDW 15.4 % (11.6-15.6)
--- NOTE | 2018-05-24 19:31 | PDOC ---
*Physical Exam - Vital Signs Last Vital Signs Temp Pulse Resp BP Pulse Ox 97.6 F 88 16 154/83 100 05/24/18 18:11 05/24/18 18:11 05/24/18 18:11 05/24/18 18:11 05/24/18 18:11 - Physical Exam Comments: 05/25/18 01:39 Soft, diffusely TTP, with exquisite TTP + guarding in RLQ R CVA tenderness S1/S2, no M/R/G Lungs CLTA B/L 2+ DP pulses ED Treatment Course - LABORATORY CBC & Chemistry Diagram: 05/24/18 19:18 05/24/18 19:18 - Medications Given in the ED: ED Medications Discontinued Medications Generic Name Dose Route Start Last Admin Trade Name Judy PRN Reason Stop Dose Admin Ketorolac Tromethamine 30 mg 05/24/18 18:50 05/24/18 18:50 Toradol Injection - IVPUSH 05/24/18 18:51 30 mg ONCE ONE Administration Morphine Sulfate 4 mg 05/24/18 18:33 05/24/18 18:35 Morphine Injection - IVPUSH 05/24/18 18:34 4 mg ONCE ONE Administration Ondansetron HCl 4 mg 05/24/18 18:34 05/24/18 18:35 Zofran Injection IVPUSH 05/24/18 18:35 4 mg ONCE ONE Administration Medical Decision Making - Medical Decision Making 05/24/18 19:30 Patient signed out by Dr. Abdul (Resident) and under the care of Dr. Orozco ( Attending) 42 year old female presents with acute onset of R sided abdominal pain + R flank pain. H/o recent (05/17/18) tubal ligation. Afebrile. VS unremarkable. Frontal Dx: nephrolithiasis, hydronephrosis, perforated viscous, early appy, UTI /pyelo Labs, Abdomen/Pelvis CT pending Morphine (4) and Toradol (30) 05/24/18 19:50 Bedside FAST negative 05/24/18 20:29 Urine negative Cr 0.[address] 05/24/18 22:26 Patient reassessed @ bedside. Wet read of CT shows possible intussception in R illeal/cecal Levaquin/Flagyll as patient is Penicillin Allergic 05/24/18 23:[address] Garcia - patient has pneumoperitoneum Dr. Hammonds (General Surgery) to evaluate patient @ bedside 05/25/18 01:33 Dr. Hammonds has low clinical suspicion for perforation. Will admit patient for serial belly exams and observation. Patient counseled on plan of care Case d/w EVELINA Richardson. [facility] *DC/Admit/Observation/Transfer Diagnosis at time of Disposition: Abdominal pain - Discharge Dispostion Condition at time of disposition: Fair Decision to Admit order: Yes - Referrals - Patient Instructions - Post Discharge Activity
[2018-05-24 19:55] LABS: ALBUMIN 3.9 g/dl (3.4-5.0); ALK PHOS 90 U/L (45-117); ANION GAP 11 MMOL/L (8-16); BILIRUBIN,TOTAL 0.8 mg/dL (0.2-1); BLOOD UREA NITROGEN 13 mg/dL (7-18); CALCIUM 8.9 mg/dL (8.5-10.1); CHLORIDE 103 mmol/L (98-107); CO2 25 mmol/L (21-32); CREATININE 0.8 mg/dL (0.55-1.3); GLUCOSE,RANDOM 105 mg/dL (74-106); POTASSIUM 4.7 mmol/L (3.5-5.1); SGOT/AST 27 U/L (15-37); SGPT/ALT 31 U/L (13-61); SODIUM 139 mmol/L (136-145); TOT PROT 7.7 g/dl (6.4-8.2)
[2018-05-24 19:56] LABS: INR 1.02 (0.83-1.09)
[2018-05-24 20:42] LABS: URINE APPEARANCE CLEAR; URINE BILIRUBIN NEGATIVE (<2.0 mg/dL); URINE COLOR LTYELLOW; URINE GLUCOSE (UA) NEGATIVE (NEGATIVE); URINE KETONE TRACE (NEGATIVE); URINE LEUK ESTERASE NEGATIVE (NEGATIVE); URINE NITRITE NEGATIVE (NEGATIVE); URINE PROTEIN NEGATIVE (NEGATIVE); URINE UROBILINOGEN NEGATIVE mg/dL (0.2-1.0)
[2018-05-24 21:09] LABS: EPI CELLS RARE /HPF (FEW); URINE MUCUS RARE
[2018-05-24] MEDS ORDERED: MORPHINE SULFATE 10 MG/1 ML *VIAL ONE (22:29)
--- NOTE | 2018-05-24 23:00 | CONSULT ---
Consult Consult Specialty:: General surgery Reason for Consultation:: pneumoperitoneum - History of Present Illness Chief Complaint: severe abdominal pain History of Present Illness: 42yo female PMH Asthma, TIA, Migraine presented to the Ed with severe abdominal pain. she is POD#7 s/p laparoscopic bilateral tubal ligation by Dr. Baires. The operative report was reviewed and described and uneventful procedure. She has an asymptomatic interval since the the procedure. Today at noon she had sudden onset right sided lower abdominal pain. shr rated 10/10 which was only relieved with morphine in the ED. she recounted that since onset it became progressively worse until receiving medication. He post op abdominal pain was minor. She reports only having taken pain medication once or twice. She has had normal BM and flatus, today. She is voiding normally. She was seen by Dr. Baires yesterday in clinic and was given the approval to return to her job, which involves heavy lifting (per patient). Today was her first day of heavy lifting ( transporting a 4 month old in a car seat). She has been experiencing 2 days of heavy menstration, the first since her procedure. A CT scan shows right sided stool burden and a few areas of extraluminal gas on the right LQ and upper pelvis. We were called to assess. 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 Place of : Other History of Recent Travel: No Home Medications - Allergies Allergies/Adverse Reactions: Allergies Allergy/AdvReac Type Severity Reaction Status Date / Time Penicillins Allergy Intermediate Verified 05/24/18 18:20 - Home Medications Home Medications: Ambulatory Orders NK [No Known Home Medication] 05/24/18 Review of Systems - Review of Systems Constitutional: denies: Chills, Fever, Loss of Appetite, Night Sweats Eyes: denies: Blind Spots, Recent Change in Vision HENT: denies: Difficult Swallowing, Ocular Prosthesis Neck: denies: Decreased ROM, Tenderness Cardiovascular: denies: Chest Pain, Palpitations Respiratory: denies: Cough, SOB Gastrointestinal: reports: Abdominal Pain. denies: Constipation, Diarrhea, Indigestion Genitourinary: denies: Burning, Discharge, Dysuria Breasts: reports: No Symptoms Reported. denies: Pain Musculoskeletal: denies: Crepitus, Muscle Pain Integumentary: denies: Lesions, Lump, Rash Neurological: denies: Seizure, Syncope, Weakness Endocrine: denies: Unexplained Weight Gain, Unexplained Weight Loss Hematology/Lymphatic: denies: Easily Bruised, Excessive Bleeding Psychiatric: denies: Anxiety, Depression Physical Exam Vital Signs: Vital Signs Temperature 98.4 F 05/24/18 22:54 Pulse Rate 78 05/24/18 22:54 Respiratory Rate 20 05/24/18 22:54 Blood Pressure 124/78 05/24/18 22:54 O2 Sat by Pulse Oximetry (%) 99 05/24/18 22:54 Vital Signs Period Temp Pulse Resp BP Sys/Foreman Pulse Ox Last 24 Hr 97.6 F-98.4 F 78-88 16-20 124-154/78-83 99-100 Constitutional: Yes: Well Nourished, No Distress, Calm Eyes: Yes: Conjunctiva Clear, EOM Intact HENT: Yes: Atraumatic, Normocephalic Neck: Yes: Supple, Trachea Midline Cardiovascular: Yes: Regular Rate and Rhythm, S1, S2 Respiratory: Yes: Regular, CTA Bilaterally Gastrointestinal: Yes: Normal Bowel Sounds, Soft, Abdomen, Obese, Tenderness ( mild tenderness lower abdomen R>>L). No: Ascites, Hernia, Palpable Mass, Pulsatile Mass, Tenderness, Epigastrium, Tenderness, Rebound, Vomiting ...Rectal Exam: Yes: Deferred Renal/: No: CVA Tenderness - Left, CVA Tenderness - Right Extremities: No: Cool, Cyanosis Wound/Incision: Yes: Clean/Dry Neurological: Yes: Alert, Oriented Psychiatric: Yes: Alert, Oriented Labs: CBC, BMP 05/24/18 19:18 05/24/18 19:18 Imaging - Results Cat Scan: Report Reviewed, Image Reviewed (anterior bubbles of free air Right LQ and upper right pelvis, right colon stool burden) Problem List - Problems (1) Status post therapeutic pneumoperitoneum Assessment/Plan: 42 yo female with free air on CTscan POD#7 s/p Lap BTL by Dr. Baires with severe abdominal pain (reported to have had signs of peritoneal irritation prior to pain medication administration) , now afebrile, no leukocytosis, no tachycardia, currently menstrating (day 2), was participating in more strenusous activity as well. CT scan has some bubbles of free gas. Low index of suspicion for occult bowel perforation at this time. NPO and IVF hydration admit for serial abdominal exams no need for antibiotics minimal analgesia consider laparoscopy vs. laparotomy if worsening Thank you for the opportunity to participate in the care of this patient. Code(s): K66.8 - OTHER SPECIFIED DISORDERS OF PERITONEUM (2) Pneumoperitoneum Code(s): K66.8 - OTHER SPECIFIED DISORDERS OF PERITONEUM (3) Abdominal pain in female patient Code(s): R10.9 - UNSPECIFIED ABDOMINAL PAIN (4) History of bilateral tubal ligation Code(s): Z98.51 - TUBAL LIGATION STATUS (5) Complicated migraine Code(s): G43.109 - MIGRAINE WITH AURA, NOT INTRACTABLE, W/O STATUS MIGRAINOSUS (6) TIA (transient ischemic attack) Code(s): G45.9 - TRANSIENT CEREBRAL ISCHEMIC ATTACK, UNSPECIFIED Qualifiers: Transient cerebral ischemia type: unspecified Qualified Code(s): G45.9 - Transient cerebral ischemic attack, unspecified
[2018-05-24] MEDS ORDERED: SODIUM CHLORIDE 0.9% 500 ML INFUS.BAG IV ONE (23:02)
[2018-05-24] MEDS ORDERED: LACTATED RINGERS SOLUTION 1000 ML INFUS.BAG IV ONE (23:05)
[2018-05-25] MEDS ORDERED: ONDANSETRON 4 MG/2 ML VIAL IVPUSH ONE (00:35)
[2018-05-25] MEDS ORDERED: morphine CARPU-JECT 4 MG/1 ML DISP.SYRIN IVPUSH ONE (00:35)
[2018-05-25] MEDS ORDERED: morphine SULFATE 4 MG/ML VIAL ONE ×2 (00:37→06:08)
[2018-05-25] MEDS ORDERED: ONDANSETRON 4 MG/2 ML VIAL ONE (00:38)
--- NOTE | 2018-05-25 00:55 | HP ---
CHIEF COMPLAINT: Abdominal pain PCP: Christel HISTORY OF PRESENT ILLNESS: This is a 42 year old female with a past medical history significant for tubal ligation on 05/17/18 who presented to the ED with abdominal pain. She reports that the pain began around 12pm today, becoming progressively worse despite treatment with davina seltzer and peptobismol. She reports that the pain is all over, worst in the RLQ and radiates to right flank. She reports nausea and vomiting as well. Denies constipation or diarrhea. States her last normal BM was today. She had some pain immediately post op which she utilized percocet only twice for. She has been feeling fine without pain until today. 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 Baires, yesterday and cleared for return to work. She states the pain began after she lifted a baby in a car seat. She reports that she is having her menses now and it began 2 days ago. ER course was notable for: (1) CT with pneumoperitoneum (2) WBC 5.0 (3) u/a not c/w UTI Recent Travel: pt denies PAST MEDICAL HISTORY: asthma, migraine PAST SURGICAL HISTORY: tubal ligation 05/17/18 cholecystectomy gastric bypass appendectomy breast reduction Social History: Smoking: pt denies Alcohol: occ wine Drugs: pt denies Family History: mother alive with HTN, meningioma, BrCA in her 50s father alive, HTN, CVA, glaucoma 2 brothers and 1 sister without any known medical problems Allergies Penicillins Allergy (Intermediate, Verified 05/24/18 18:20) HOME MEDICATIONS: 3 Medication Instructions Recorded Albuterol 0.083% Nebulizer Alida 1 neb NEB Q4H PRN 05/25/18 [Ventolin 0.083%] Albuterol Sulfate Inhaler - 1 - 2 inh PO QID PRN 05/25/18 [Ventolin Hfa Inhaler -] REVIEW OF SYSTEMS CONSTITUTIONAL: Absent: fever, chills, diaphoresis, generalized weakness, malaise, loss of appetite, weight change HEENT: Absent: rhinorrhea, nasal congestion, throat pain, throat swelling, difficulty swallowing, mouth swelling, ear pain, eye pain, visual changes CARDIOVASCULAR: Absent: chest pain, syncope, palpitations, irregular heart rate, lightheadedness , peripheral edema RESPIRATORY: Absent: cough, shortness of breath, dyspnea with exertion, orthopnea, wheezing, stridor, hemoptysis GASTROINTESTINAL: Present: abdominal pain, nausea, vomiting Absent: abdominal distension, diarrhea, constipation, melena, hematochezia GENITOURINARY: Absent: dysuria, frequency, urgency, hesitancy, hematuria, flank pain, genital pain MUSCULOSKELETAL: Absent: myalgia, arthralgia, joint swelling, back pain, neck pain SKIN: Absent: rash, itching, pallor HEMATOLOGIC/IMMUNOLOGIC: Absent: easy bleeding, easy bruising, lymphadenopathy, frequent infections ENDOCRINE: Absent: unexplained weight gain, unexplained weight loss, heat intolerance, cold intolerance NEUROLOGIC: Absent: headache, focal weakness or paresthesias, dizziness, unsteady gait, seizure, mental status changes, bladder or bowel incontinence PSYCHIATRIC: Absent: anxiety, depression, suicidal or homicidal ideation, hallucinations. PHYSICAL EXAMINATION Vital Signs - 24 hr 3 05/24/18 05/24/18 18:11 22:54 Temperature 97.6 F 98.4 F Pulse Rate 88 Pulse Rate [ 78 Apical] Respiratory 16 20 Rate Blood Pressure 154/83 Blood Pressure 124/78 [Left Arm] O2 Sat by Pulse 100 99 Oximetry (%) GENERAL: Awake, alert, and fully oriented, in no acute distress. HEAD: Normal with no signs of trauma. EYES: Pupils equal, round and reactive to light, extraocular movements intact, sclera anicteric, conjunctiva clear. No lid lag. EARS, NOSE, THROAT: Ears normal, nares patent, oropharynx clear without exudates. Moist mucous membranes. NECK: Normal range of motion, supple without lymphadenopathy, JVD, or masses. LUNGS: Breath sounds equal, clear to auscultation bilaterally. No wheezes, and no crackles. No accessory muscle use. HEART: Regular rate and rhythm, normal S1 and S2 without murmur, rub or gallop. ABDOMEN: Soft, tender all 4 quadrants, not distended, normoactive bowel sounds, + guarding, no rebound, no masses. No hepatomegaly or splenomegaly. MUSCULOSKELETAL: Normal range of motion at all joints. No bony deformities or tenderness. + right CVA tenderness. UPPER EXTREMITIES: 2+ pulses, warm, well-perfused. No cyanosis. No clubbing. No peripheral edema. LOWER EXTREMITIES: 2+ pulses, warm, well-perfused. No calf tenderness. No peripheral edema. NEUROLOGICAL: Cranial nerves II-XII intact. Normal speech. Normal gait. PSYCHIATRIC: Cooperative. Good eye contact. Appropriate mood and affect. SKIN: Warm, dry, normal turgor, no rashes or lesions noted, normal capillary refill. Laboratory Results - last 24 hr 3 05/24/1818 05/24/18 19:18 19:18 19:18 WBC 5.0 RBC 4.40 Hgb 11.5 Hct 35.2 MCV 80.1 MCH 26.1 MCHC 32.6 RDW 15.4 Plt Count 328 MPV 7.6 Absolute Neuts (auto) 3.3 Neutrophils % 65.4 D Lymphocytes % 24.8 D Monocytes % 6.3 Eosinophils % 2.4 Basophils % 1.1 Nucleated RBC % 0 PT with INR INR Sodium 139 Potassium 4.7 Chloride 103 Carbon Dioxide 25 Anion Gap 11 BUN 13 Creatinine 0.8 Creat Clearance w eGFR > 60 Random Glucose 105 Calcium 8.9 Total Bilirubin 0.8 AST 27 ALT 31 Alkaline Phosphatase 90 Total Protein 7.7 Albumin 3.9 Serum , Qual Urine Color Urine Appearance Urine pH Ur Specific [place] Urine Protein Urine Glucose (UA) Urine Ketones Urine Blood Urine Nitrite Urine Bilirubin Urine Urobilinogen Ur Leukocyte Esterase Urine WBC (Auto) Urine RBC (Auto) Ur Epithelial Cells Urine Mucus Blood Type O POSITIVE Antibody Screen Negative 3 05/24/18 05/24/18 05/24/18 19:18 19:18 20:00 WBC RBC Hgb Hct MCV MCH MCHC RDW Plt Count MPV Absolute Neuts (auto) Neutrophils % Lymphocytes % Monocytes % Eosinophils % Basophils % Nucleated RBC % PT with INR 12.00 INR 1.02 Sodium Potassium Chloride Carbon Dioxide Anion Gap BUN Creatinine Creat Clearance w eGFR Random Glucose Calcium Total Bilirubin AST ALT Alkaline Phosphatase Total Protein Albumin Serum , Qual Negative Urine Color Ltyellow Urine Appearance Clear Urine pH 6.0 Ur Specific [place] 1.018 Urine Protein Negative Urine Glucose (UA) Negative Urine Ketones Trace H Urine Blood 2+ H Urine Nitrite Negative Urine Bilirubin Negative Urine Urobilinogen Negative Ur Leukocyte Esterase Negative Urine WBC (Auto) 1 Urine RBC (Auto) 8 Ur Epithelial Cells Rare Urine Mucus Rare Blood Type Antibody Screen ECG normal sinus rhythm with sinus arrhythmia vent rate 72, QTC [address]/T wave changes Radiology Reports CT abd/pelvis with IV contrast Impression: A small pneumoperitoneum is noted as discussed above. The exact site of origin of this finding is uncertain on the basis of this study. Note is made of mild to moderately increased mesenteric density within the abdomen and pelvis which may represent edema. There is possible focal soft tissue thickening in the region of the ileocecal valve (versus representing localized fecal accumulation). Several punctate densities are also noted in the same region as well as within the distal ileum which may represent ingested material and/or calcifications. Correlate with follow-up CT or colonoscopy. Several punctate bilateral nonobstructing renal calculi described on the 2008 CT study cannot be appreciated on the current exam which may be due to obscuration from intravascular contrast versus interval passage. If clinically indicated correlate with follow-up noncontrast CT exam. Status post interval cholecystectomy. There is minimal to mild common bile duct dilatation which could be on a physiologic basis following surgery. clinical/ laboratory correlation is suggested. If clinically indicated correlate with MRI/ MRCP. Reported By: Roc Corral MD 05/24/18 [id number] ASSESSMENT/PLAN: 42yF with PMH asthma, migraines, s/p tubal ligation 05/17/18 presented to the ED with abdominal pain. Pneumoperitoneum - of unspecified significance - Surgical consult appreciated, will observe for now, serial radiologic exams - NPO/IV NS @100cc/hr - morphine for pain - given levaquin and flagyl in ED. Will monitor off antibiotics as no fever or elevated WBC unless surgery requests asthma - asymptomatic - cont albuterol PRN, pt states she last utilized 2 months ago during a URI DVT PPX - heparin 5000u TID FEN - NS @ 100cc/hr - BMP in am - NPO for now Dispo: pt currently requires further inpatient management of her emergent condition. Visit type - Emergency Visit Emergency Visit: Yes ED Registration Date: 05/25/18 Care time: The patient presented to the Emergency Department on the above date and was hospitalized for further evaluation of their emergent condition. - New Patient This patient is new to me today: Yes Date on this admission: 05/25/18 - Critical Care Critical Care patient: No
[2018-05-25] MEDS ORDERED: ONDANSETRON 4 MG/2 ML VIAL IVPUSH PRN (01:12)
[2018-05-25] MEDS ORDERED: SODIUM CHLORIDE 1,000 ML IV SCH (01:15)
[2018-05-25] MEDS ORDERED: ALBUTEROL SO4 0.083% IH SOL 2.5 MG/3 ML VIAL.NEB. NEB PRN (04:58)
[2018-05-25] MEDS ORDERED: HEPARIN NA (PORCINE) 5,000 UNITS/ML 1ML VIAL ONE (06:04)
[2018-05-25] MEDS: HEPARIN NA (PORCINE) 5,000 UNITS/ML 1ML VIAL SQ SCH ×3 (06:13→21:44)
[2018-05-25] MEDS: morphine SULFATE 4 MG/ML VIAL IVPUSH PRN ×2 (06:13→12:57)
--- NOTE | 2018-05-25 10:09 | PN ---
Progress Note (short form) - Note Progress Note: events noted Has abd pain after eating food Nausea+ no BM today Vital Signs - 24 hr 05/24/18 05/24/18 05/25/18 18:11 22:54 02:55 Temperature 97.6 F 98.4 F Pulse Rate 88 Pulse Rate [ 78 82 Apical] Respiratory 16 20 18 Rate Blood Pressure 154/83 Blood Pressure 124/78 128/72 [Left Arm] O2 Sat by Pulse 100 99 98 Oximetry (%) 05/25/18 05/25/18 05/25/18 06:23 09:00 09:02 Temperature 98.4 F Pulse Rate 68 Pulse Rate [ 74 Apical] Respiratory 18 16 16 Rate Blood Pressure 124/72 Blood Pressure 126/70 [Left Arm] O2 Sat by Pulse 98 99 Oximetry (%) Current Medications Generic Name Dose Route Start Last Admin Trade Name Freq PRN Reason Stop Dose Admin Albuterol Sulfate 1 amp 05/25/18 04:58 Ventolin 0.083% Nebulizer Soln - NEB Q4H PRN SHORT OF BREATH/WHEEZING Heparin Sodium (Porcine) 5,000 unit 05/25/18 06:00 05/25/18 06:13 Heparin - SQ 5,000 unit TID REMBERTO Administration Sodium Chloride 1,000 mls @ 100 mls/hr 05/25/18 01:15 05/25/18 01:25 Normal Saline - IV 100 mls/hr ASDIR REMBERTO Administration Morphine Sulfate 4 mg 05/25/18 01:12 05/25/18 06:13 Morphine Sulfate IVPUSH 4 mg Q4H PRN Administration PAIN LEVEL 6-10 Ondansetron HCl 4 mg 05/25/18 01:12 Zofran Injection IVPUSH Q6H PRN NAUSEA Laboratory Results - last 24 hr 05/24/18 05/24/18 05/24/18 19:18 19:18 19:18 WBC 5.0 RBC 4.40 Hgb 11.5 Hct 35.2 MCV 80.1 MCH 26.1 MCHC 32.6 RDW 15.4 Plt Count 328 MPV 7.6 Absolute Neuts (auto) 3.3 Neutrophils % 65.4 D Lymphocytes % 24.8 D Monocytes % 6.3 Eosinophils % 2.4 Basophils % 1.1 Nucleated RBC % 0 PT with INR INR Sodium 139 Potassium 4.7 Chloride 103 Carbon Dioxide 25 Anion Gap 11 BUN 13 Creatinine 0.8 Creat Clearance w eGFR > 60 Random Glucose 105 Calcium 8.9 Total Bilirubin 0.8 AST 27 ALT 31 Alkaline Phosphatase 90 Total Protein 7.7 Albumin 3.9 Serum , Qual Urine Color Urine Appearance Urine pH Ur Specific [place] Urine Protein Urine Glucose (UA) Urine Ketones Urine Blood Urine Nitrite Urine Bilirubin Urine Urobilinogen Ur Leukocyte Esterase Urine WBC (Auto) Urine RBC (Auto) Ur Epithelial Cells Urine Mucus Blood Type O POSITIVE Antibody Screen Negative 05/24/18 05/24/18 05/24/18 19:18 19:18 20:00 WBC RBC Hgb Hct MCV MCH MCHC RDW Plt Count MPV Absolute Neuts (auto) Neutrophils % Lymphocytes % Monocytes % Eosinophils % Basophils % Nucleated RBC % PT with INR 12.00 INR 1.02 Sodium Potassium Chloride Carbon Dioxide Anion Gap BUN Creatinine Creat Clearance w eGFR Random Glucose Calcium Total Bilirubin AST ALT Alkaline Phosphatase Total Protein Albumin Serum , Qual Negative Urine Color Ltyellow Urine Appearance Clear Urine pH 6.0 Ur Specific [place] 1.018 Urine Protein Negative Urine Glucose (UA) Negative Urine Ketones Trace H Urine Blood 2+ H Urine Nitrite Negative Urine Bilirubin Negative Urine Urobilinogen Negative Ur Leukocyte Esterase Negative Urine WBC (Auto) 1 Urine RBC (Auto) 8 Ur Epithelial Cells Rare Urine Mucus Rare Blood Type Antibody Screen S1 S2 RRR Lungs clear Abd- soft, tender lower abdomen, BS+ no edema PLAN change diet to clears IV fluids change pain meds OOB Problem List - Problems (1) Abdominal pain Code(s): R10.9 - UNSPECIFIED ABDOMINAL PAIN (2) History of bilateral tubal ligation Code(s): Z98.51 - TUBAL LIGATION STATUS (3) Pneumoperitoneum Code(s): K66.8 - OTHER SPECIFIED DISORDERS OF PERITONEUM
--- NOTE | 2018-05-25 11:08 | EKG ---
Test Reason : Blood Pressure : / mmHG Vent. Rate : 072 BPM Atrial Rate : 072 BPM P-R Int : 148 ms QRS Dur : 070 ms QT Int : 382 ms P-R-T Axes : 078 040 044 degrees QTc Int : 418 ms NORMAL SINUS RHYTHM WITH SINUS ARRHYTHMIA NORMAL ECG WHEN COMPARED WITH ECG OF 05-FEB-2017 12:59, CRITERIA FOR ANTERIOR INFARCT ARE NO LONGER PRESENT NONSPECIFIC T WAVE ABNORMALITY HAS REPLACED INVERTED T WAVES IN ANTERIOR LEADS Confirmed by MIRANDA ALCANTARA MD ([id number]) on 05/25/2018 11:07:26 AM Referred By: Confirmed By:MIRANDA ALCANTARA MD
[2018-05-25 11:33] VITALS: BMI 33.6
[2018-05-25] MEDS ORDERED: FLU VACCINE QUAD 60 MCG/0.5 ML (MDV 18-19) IM ONE (13:00)
[2018-05-25] MEDS ORDERED: KETOROLAC TROMETHAMINE 30 MG/1 ML VIAL IVPUSH PRN (14:20)
[2018-05-25] MEDS: POLYETHYLENE GLYCOL 3350 119 GM BTL PO PRN ×2 (16:47→21:42)
[2018-05-25] MEDS ORDERED: IBUPROFEN 400 MG TABLET (FP) PO PRN (19:37)
[2018-05-25] MEDS ORDERED: BISACODYL 5 MG TABLET.DR (FP) PO PRN (19:37)
--- NOTE | 2018-05-25 19:52 | PN ---
Progress Note (SOAP) - Subjective Chief Complaint: 42yo P2 with abdominal pain of sudden onset that began yesterday. The pt states that her abdominal pain is diffuse but worse in the RUQ and radiating to her back. She reports that the pain improved today, compared to last night. She states the pain is exacerbated by eating and food triggers nausea. She reports no flatus today. The pt states no fever, chills, and no complaints. Her menses ended today. I saw the pt last night and she appears clinically much improved. History of Present Illness: The pt is s/p uncomplicated laparosscopic BTL on 05/17/2018. Pt was seen by me in the office on 05/23/2018 for post-op examination and she reported feeling well and had no complaints, normal BM, no nausea or vomiting. She requested to be cleared to return to work. The pt presented to ER on 05/24/18 with c/o sudden onset abdominal pain. Imaging and labs reviewed. Pt states she had same pain and sx's several years ago (~4) that was due to a delayed complication with gastric sleeve. - Current Medications Current Medications: Active Medications Albuterol Sulfate (Ventolin 0.083% Nebulizer Soln -) 1 amp NEB Q4H PRN PRN Reason: SHORT OF BREATH/WHEEZING Bisacodyl (Dulcolax -) 5 mg PO DAILY PRN PRN Reason: CONSTIPATION Heparin Sodium (Porcine) (Heparin -) 5,000 unit SQ BID [facility] Sodium Chloride (Normal Saline -) 1,000 mls @ 100 mls/hr IV ASDIR REMBERTO Last Admin: 05/25/18 01:25 Dose: 100 mls/hr Ibuprofen (Motrin -) 400 mg PO Q6H PRN PRN Reason: FEVER Ondansetron HCl (Zofran Injection) 4 mg IVPUSH Q6H PRN PRN Reason: NAUSEA Last Admin: 05/25/18 14:15 Dose: 4 mg Polyethylene Glycol (Miralax (For Daily Use) -) 17 gm PO DAILY PRN PRN Reason: CONSTIPATION Last Admin: 05/25/18 16:47 Dose: 17 gm Ranitidine HCl (Zantac -) 150 mg PO BID [facility] - Objective Vital Signs: Vital Signs Temperature 98.2 F 05/25/18 11:00 Pulse Rate 75 05/25/18 11:00 Respiratory Rate 18 05/25/18 11:00 Blood Pressure 136/75 05/25/18 11:00 O2 Sat by Pulse Oximetry (%) 99 05/25/18 09:00 Constitutional: Yes: Well Nourished, No Distress, Calm Eyes: Yes: WNL, Conjunctiva Clear, EOM Intact HENT: Yes: WNL, Atraumatic, Normocephalic Neck: Yes: WNL, Supple Cardiovascular: Yes: Regular Rate and Rhythm Respiratory: Yes: Regular, CTA Bilaterally Gastrointestinal: Yes: Normal Bowel Sounds, Soft, Abdomen, Obese, Tenderness ( upper abdomen > lower abdomen, mostly in RUQ. No rebound or guarding), Tenderness, Epigastrium ...Rectal Exam: Yes: Deferred Genitourinary: Yes: WNL, Other (no CVAT) Musculoskeletal: Yes: WNL Extremities: Yes: WNL Peripheral Pulses WNL: Yes Edema: No Integumentary: Yes: WNL Wound/Incision: Yes: Well Approximated (healed) Neurological: Yes: WNL, Alert, Oriented Psychiatric: Yes: WNL, Alert, Oriented Labs Lab Results: CBC, BMP 05/24/18 19:18 05/24/18 19:18 Imaging - Results X-ray: Report Reviewed Cat Scan: Report Reviewed Assessment/Plan 42yo female with acute onset abdominal pain. CT scan noted several small pockets of pneumoperitoneum in lower pelvis and mesenteric density that may be c /w edema. Although the laparoscopic BTL was uncomplicated, an occult bowel perforation is considered. However, the overall presentation, labs, and the fact that the patient is improving, is very atypical. I will discuss further management with pt's consulting surgeon and medical team.
[2018-05-25] MEDS: SODIUM CHLORIDE 1,000 ML IV SCH (20:40)
[2018-05-25 21:18] VITALS: TEMP 98.6
--- NOTE | 2018-05-25 21:29 | PN ---
Progress Note (short form) - Note Progress Note: spoke with Dr Baires- pt still c/o pain when eating. ?perforation Pt kept NPO continue with iv fluids will start empiric antibiotics Check CT abd in AM hold discharge Problem List - Problems (1) Abdominal pain Code(s): R10.9 - UNSPECIFIED ABDOMINAL PAIN (2) History of bilateral tubal ligation Code(s): Z98.51 - TUBAL LIGATION STATUS (3) Pneumoperitoneum Code(s): K66.8 - OTHER SPECIFIED DISORDERS OF PERITONEUM
[2018-05-25] MEDS: FAMOTIDINE 20 MG/50 ML IVPB 20 MG/50 ML MG IVPB SCH (21:43)
[2018-05-25] MEDS ORDERED: RANITIDINE HCL 150 MG TABLET (FP) PO SCH (22:00)
[2018-05-26] MEDS: KETOROLAC TROMETHAMINE 30 MG/1 ML VIAL IVPUSH SCH ×2 (01:52→10:13)
[2018-05-26] MEDS: SODIUM CHLORIDE 1,000 ML IV SCH (06:22)
[2018-05-26 08:00] LABS: BASO % 1.1 % (0-2.0); EOS % 5.1 % (0-4.5); HEMOGLOBIN 10.1 GM/dL (10.7-15.3); LYMPH % 42.7 % (8-40); MCH 25.6 pg (25.7-33.7); MCHC 31.7 g/dl (32.0-36.0); MEAN CELL VOLUME 80.7 fl (80-96); MEAN PLT VOLUME 7.6 fl (7.5-11.1); NEUT % 43.1 % (42.8-82.8); PLATELET COUNT 302 K/MM3 (134-434); RBC 3.96 M/mm3 (3.60-5.2); RDW 15.4 % (11.6-15.6); WHITE BLOOD COUNT 4.1 K/mm3 (4.0-10.0)
[2018-05-26 08:33] LABS: AMYLASE 63 U/L (25-115); LIPASE 220 U/L (73-393)
[2018-05-26 08:37] LABS: ALBUMIN 3.2 g/dl (3.4-5.0); ALK PHOS 80 U/L (45-117); ANION GAP 7 MMOL/L (8-16); BILIRUBIN,TOTAL 1.3 mg/dL (0.2-1); BLOOD UREA NITROGEN 7 mg/dL (7-18); CALCIUM 8.4 mg/dL (8.5-10.1); CHLORIDE 109 mmol/L (98-107); CO2 25 mmol/L (21-32); CREATININE 0.7 mg/dL (0.55-1.3); GLUCOSE,RANDOM 80 mg/dL (74-106); MAGNESIUM 1.9 mg/dL (1.8-2.4); PHOSPHOROUS 4.1 mg/dL (2.5-4.9); POTASSIUM 4.2 mmol/L (3.5-5.1); SGOT/AST 18 U/L (15-37); SGPT/ALT 23 U/L (13-61); SODIUM 141 mmol/L (136-145); TOT PROT 6.4 g/dl (6.4-8.2)
--- NOTE | 2018-05-26 08:53 | PN ---
Progress Note (SOAP) - Subjective Chief Complaint: 42yo P2 with abdominal pain of sudden onset. The pt states feeling better today , abdominal pain resolved. She is drinking contrast for the CT scan. The pt states no fever, chills, and no complaints. History of Present Illness: The pt is s/p uncomplicated laparosscopic BTL on 05/17/2018. The admission CT scan a week later showed pneumoperitoneum. - Current Medications Current Medications: Active Medications Albuterol Sulfate (Ventolin 0.083% Nebulizer Soln -) 1 amp NEB Q4H PRN PRN Reason: SHORT OF BREATH/WHEEZING Bisacodyl (Dulcolax -) 5 mg PO DAILY PRN PRN Reason: CONSTIPATION Last Admin: 05/25/18 21:42 Dose: 5 mg Heparin Sodium (Porcine) (Heparin -) 5,000 unit SQ BID [facility] Last Admin: 05/25/18 21:44 Dose: 5,000 unit Sodium Chloride (Normal Saline -) 1,000 mls @ 125 mls/hr IV ASDIR [facility] Last Admin: 05/26/18 06:22 Dose: 125 mls/hr Famotidine/Sodium Chloride (Pepcid 20 Mg Premixed Ivpb -) 20 mg in 50 mls @ 100 mls/hr IVPB BID REMBERTO Last Admin: 05/25/18 21:43 Dose: 100 mls/hr Levofloxacin (Levaquin 500 Mg Premixed Ivpb -) 500 mg in 100 mls @ 100 mls/hr IVPB DAILY [facility]; Protocol Ketorolac Tromethamine (Toradol Injection -) 30 mg IVPUSH Q8H-IV REMBERTO Stop: 05/30/18 01:59 Last Admin: 05/26/18 01:52 Dose: 30 mg Ondansetron HCl (Zofran Injection) 4 mg IVPUSH Q6H PRN PRN Reason: NAUSEA Last Admin: 05/25/18 14:15 Dose: 4 mg Polyethylene Glycol (Miralax (For Daily Use) -) 17 gm PO DAILY PRN PRN Reason: CONSTIPATION Last Admin: 05/25/18 21:42 Dose: 17 gm - Objective Vital Signs: Vital Signs Temperature 98.6 F 05/26/18 05:00 Pulse Rate 64 05/26/18 05:00 Respiratory Rate 18 05/26/18 05:00 Blood Pressure 115/70 05/26/18 05:00 O2 Sat by Pulse Oximetry (%) 99 05/25/18 09:00 Constitutional: Yes: Well Nourished, No Distress, Calm Eyes: Yes: WNL, Conjunctiva Clear, EOM Intact HENT: Yes: WNL, Atraumatic, Normocephalic Neck: Yes: WNL, Supple Cardiovascular: Yes: WNL, Regular Rate and Rhythm Respiratory: Yes: WNL, Regular, CTA Bilaterally Gastrointestinal: Yes: WNL, Normal Bowel Sounds, Soft Genitourinary: Yes: WNL Musculoskeletal: Yes: WNL Extremities: Yes: WNL Edema: No Integumentary: Yes: WNL Neurological: Yes: WNL, Alert, Oriented ...Motor Strength: Yes: WNL Psychiatric: Yes: WNL, Alert, Oriented Labs Lab Results: CBC, BMP 05/26/18 07:00 05/26/18 07:00 Assessment/Plan 42yo female with acute onset abdominal pain. CT scan noted several small pockets of pneumoperitoneum in lower pelvis and mesenteric density that may be c /w edema. Pt has clinically improved. She remains afebrile and has stable VS and labs. Plan to repeat CT abdomen/pelvic to re-assess the amount of pneumoperitoneum. If there is an increased amount of air in the peritoneal space , that would be concerning for bowel perforation. If the findings show improvement, the pt can be discharged to home and f/u with me in-office.
[2018-05-26] MEDS: HEPARIN NA (PORCINE) 5,000 UNITS/ML 1ML VIAL SQ SCH (10:12)
[2018-05-26] MEDS: FAMOTIDINE 20 MG/50 ML IVPB 20 MG/50 ML MG IVPB SCH (10:13)
--- NOTE | 2018-05-26 10:44 | PN ---
Progress Note, Physician History of Present Illness: 42yo female PMH Asthma, TIA, Migraine presented to the Ed with severe abdominal pain. she is POD#7 s/p laparoscopic bilateral tubal ligation by Dr. Baires. The operative report was reviewed and described and uneventful procedure. tolerating diet now. - Current Medication List Current Medications: Active Medications Albuterol Sulfate (Ventolin 0.083% Nebulizer Soln -) 1 amp NEB Q4H PRN PRN Reason: SHORT OF BREATH/WHEEZING Bisacodyl (Dulcolax -) 5 mg PO DAILY PRN PRN Reason: CONSTIPATION Last Admin: 05/25/18 21:42 Dose: 5 mg Heparin Sodium (Porcine) (Heparin -) 5,000 unit SQ BID REMBERTO Last Admin: 05/26/18 10:12 Dose: Not Given Sodium Chloride (Normal Saline -) 1,000 mls @ 125 mls/hr IV ASDIR REMBERTO Last Admin: 05/26/18 06:22 Dose: 125 mls/hr Famotidine/Sodium Chloride (Pepcid 20 Mg Premixed Ivpb -) 20 mg in 50 mls @ 100 mls/hr IVPB BID REMBERTO Last Admin: 05/26/18 10:13 Dose: Not Given Levofloxacin (Levaquin 500 Mg Premixed Ivpb -) 500 mg in 100 mls @ 100 mls/hr IVPB DAILY [facility]; Protocol Last Admin: 05/26/18 10:12 Dose: Not Given Ketorolac Tromethamine (Toradol Injection -) 30 mg IVPUSH Q8H-IV REMBERTO Stop: 05/30/18 01:59 Last Admin: 05/26/18 10:13 Dose: Not Given Ondansetron HCl (Zofran Injection) 4 mg IVPUSH Q6H PRN PRN Reason: NAUSEA Last Admin: 05/25/18 14:15 Dose: 4 mg Polyethylene Glycol (Miralax (For Daily Use) -) 17 gm PO DAILY PRN PRN Reason: CONSTIPATION Last Admin: 05/25/18 21:42 Dose: 17 gm - Objective Vital Signs: Vital Signs Temperature 98.6 F 05/26/18 05:00 Pulse Rate 64 05/26/18 05:00 Respiratory Rate 18 05/26/18 05:00 Blood Pressure 115/70 05/26/18 05:00 O2 Sat by Pulse Oximetry (%) 99 05/25/18 09:00 Constitutional: Yes: Well Nourished, No Distress, Calm, Obese Eyes: Yes: Conjunctiva Clear, EOM Intact HENT: Yes: Atraumatic, Normocephalic Neck: Yes: Supple, Trachea Midline Cardiovascular: Yes: Regular Rate and Rhythm, S1, S2 Respiratory: Yes: Regular, CTA Bilaterally Gastrointestinal: Yes: Normal Bowel Sounds, Soft, Abdomen, Obese. No: Tenderness, Tenderness, Epigastrium, Tenderness, Rebound Genitourinary: No: CVA Tenderness - Left, CVA Tenderness - Right Musculoskeletal: No: Muscle Pain, Muscle Weakness Extremities: No: Cool, Cyanosis Edema: No Peripheral Pulses WNL: Yes Peripheral Pulses: Left Radial: 2+, Right Radial: 2+, Left Doralis Pedis: 2+, Right Dorsalis Pedis: 2+ Wound/Incision: Yes: Clean/Dry, Well Approximated Neurological: Yes: Alert, Oriented Psychiatric: Yes: Alert, Oriented Labs: CBC, BMP 05/26/18 07:00 05/26/18 07:00 INR, PTT INR 1.02 (0.83-1.09) 05/24/18 19:18 - ....Imaging Cat Scan: Report Reviewed, Image Reviewed (interval resoultion of gas bubbles) Problem List - Problems (1) Status post therapeutic pneumoperitoneum Assessment/Plan: 42 yo female with free air on CTscan POD#7 s/p Lap BTL by Dr. Baires with severe abdominal pain (reported to have had signs of peritoneal irritation prior to pain medication administration) , now afebrile, no leukocytosis, no tachycardia, currently menstrating (day 2), was participating in more strenusous activity as well. CT scan has some bubbles of free gas. Low index of suspicion for occult bowel perforation. She is tolerating diet. Repeat Ctscan show interval resolution of extraluminal gas. NO ACUTE SURGICAL INTERVENTION IS INDICATED. diet as tolerated defer all managment to Dr. Baires no general surgery followup required. Code(s): K66.8 - OTHER SPECIFIED DISORDERS OF PERITONEUM (2) Pneumoperitoneum Code(s): K66.8 - OTHER SPECIFIED DISORDERS OF PERITONEUM (3) Abdominal pain in female patient Code(s): R10.9 - UNSPECIFIED ABDOMINAL PAIN (4) History of bilateral tubal ligation Code(s): Z98.51 - TUBAL LIGATION STATUS (5) Complicated migraine Code(s): G43.109 - MIGRAINE WITH AURA, NOT INTRACTABLE, W/O STATUS MIGRAINOSUS (6) TIA (transient ischemic attack) Code(s): G45.9 - TRANSIENT CEREBRAL ISCHEMIC ATTACK, UNSPECIFIED Qualifiers: Transient cerebral ischemia type: unspecified Qualified Code(s): G45.9 - Transient cerebral ischemic attack, unspecified
--- NOTE | 2018-05-26 11:12 | DS ---
Physical Examination Vital Signs: Vital Signs Temperature 98.6 F 05/26/18 05:00 Pulse Rate 64 05/26/18 05:00 Respiratory Rate 18 05/26/18 05:00 Blood Pressure 115/70 05/26/18 05:00 O2 Sat by Pulse Oximetry (%) 99 05/25/18 09:00 Findings/Remarks: pt seen/ examined. chart reviewed sitting in chair no complains denies pain afebrile Constitutional: Yes: No Distress, Calm Eyes: Yes: Conjunctiva Clear Neck: Yes: Supple Cardiovascular: Yes: Regular Rate and Rhythm Respiratory: Yes: CTA Bilaterally Gastrointestinal: Yes: Normal Bowel Sounds, Soft Edema: No Neurological: Yes: Alert Psychiatric: Yes: Alert Labs: CBC, BMP 05/26/18 07:00 05/26/18 07:00 Discharge Summary Reason For Visit: APHASIS Current Active Problems Abdominal pain (Acute) Abdominal pain in female patient (Acute) History of bilateral tubal ligation (Acute) Pneumoperitoneum (Acute) Status post therapeutic pneumoperitoneum (Acute) Hospital Course: This is a 42 year old female with a past medical history significant for tubal ligation on 05/17/18 who presented to the ED with abdominal pain. 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
[2018-05-26 11:27] VITALS: BP 139/93; PULSE 76
== END 2018-05-26 14:52 | disposition home or self-care (01) | DRG 392 ==
LOC: JER 18:08 → JERBED 05-25 00:08 → J6S 05-25 09:45
PROVIDERS: ADMIT Internal Medicine; ATTEND Internal Medicine
DX: R10.0 Acute abdomen (principal); J45.909 Unspecified asthma, uncomplicated; Z86.73 Personal history of transient ischemic attack (TIA), and cerebral infarction without residual deficits; Z98.84 Bariatric surgery status; Z98.51 Tubal ligation status; G43.909 Migraine, unspecified, not intractable, without status migrainosus
CPT/HCPCS: 36415; 71045-TC-FY; 74019-TC-FY; 74176-TC; 74177-TC; 80053; 81003; 81015; 82150; 83690; 83735; 84100; 84703; 85025; 85610; 86850; 86900; 86901; 87086; 93005; 93010; 99284-25; J1644; J7030; Q9967

== ENCOUNTER 2019-03-21 21:20 | Emergency (ER) | payer OTHER ==
[2019-03-21 21:29] VITALS: BP 135/90; PULSE 73; TEMP 98.3; BMI 31.8
--- NOTE | 2019-03-21 23:03 | PDOC ---
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 She felt pain and heard a "snap" in the left shoulder area. Since then, the pain has been persistent, worse with movement of her shoulder. She did not fall or hurt any other area of her body. She has no distal extremity pain/numbness or weakness. No previous history of shoulder abnormalities. Patient had incomplete relief of her pain after taking "Excedrin" soon after injury Patient usually has orthopedic care at Dr. Bharat allen Past History - Past Medical History Allergies/Adverse Reactions: Allergies Allergy/AdvReac Type Severity Reaction Status Date / Time Penicillins Allergy Intermediate Verified 05/24/18 18:20 Home Medications: Ambulatory Orders Albuterol 0.083% Nebulizer Alida [Ventolin 0.083% Nebulizer Soln -] 1 neb NEB Q4H PRN 05/25/18 Albuterol Sulfate Inhaler - [Ventolin HFA Inhaler -] 1 - 2 inh PO QID PRN Ibuprofen [Motrin -] 400 mg PO TID PRN #7 tablet 05/25/18 Ranitidine [Zantac -] 150 mg PO BID #7 tablet 05/25/18 Anemia: Yes Asthma: Yes Cancer: No Cardiac Disorders: No CVA: Yes (TIA 2016) COPD: No CHF: No Dementia: No Diabetes: No (but hypoglycemic sometimes) GI Disorders: Yes (lactose intolerant) Disorders: No HTN: No Hypercholesterolemia: No Liver Disease: No Psychiatric Problems: (Anxiety) Seizures: No Thyroid Disease: No - Surgical History Abdominal Surgery: Yes (GASTRIC BYPASS) Appendectomy: Yes Cardiac Surgery: No Cholecystectomy: Yes Gastric Stapling: (GASTRIC BYPASS) Lung Surgery: No Neurologic Surgery: No - Reproductive History (#): 5 Para: 2 Cervical CA: No Dysfunctional Uterine Bleeding: No Ectopic : No Endometrial CA: No Polycystic Ovaries: No Therapeutic (s) & number: No Tubal Ligation: No Spontaneous : 0 - Immunization History Td Vaccination: No Immunization Up to Date: Yes - Suicide/Smoking/Psychosocial Hx Smoking Status: No Smoking History: Unknown if ever smoked Have you smoked in the past 12 months: No Number of Cigarettes Smoked Daily: 0 Information on smoking cessation initiated: No Hx Alcohol Use: No Drug/Substance Use Hx: No Substance Use Type: None Hx Substance Use Treatment: No Review of Systems - Review of Systems Able to Perform ROS?: Yes Comments:: 12 point review of systems is negative except for what is noted in the history of present illness *Physical Exam - Vital Signs Last Vital Signs Temp Pulse Resp BP Pulse Ox 98.3 F 73 14 135/90 100 03/21/19 21:23 03/21/19 21:23 03/21/19 21:23 03/21/19 21:23 03/21/19 21:23 - Physical Exam Comments: GENERAL: Adult female, alert and oriented 3, in mild distress secondary to left shoulder pain HEAD: Normal with no signs of trauma. EYES: PERRLA, EOMI, sclera anicteric, conjunctiva clear. ENT: Ears normal, nares patent, oropharynx clear without exudates. Moist mucous membranes. NECK: Normal range of motion, supple without lymphadenopathy, JVD, or masses. LUNGS: Breath sounds equal, clear to auscultation bilaterally. No wheezes, and no crackles. HEART:Regular rate and rhythm, normal S1 and S2 without murmur, rub or gallop. EXTREMITIES: Left shoulder-moderate tenderness, slight edema at the AC joint; no evidence of clavicular deformity or tenderness Pain reproduced with active and passive arm abduction; no humeral deformity noted Distal left upper extremity nontender with intact neurovascular functioning. Remainder of the extremity exam is normal NEUROLOGICAL: Cranial nerves II through XII grossly intact. Normal speech. No focal neurological deficits. ED Treatment Course - ADDITIONAL ORDERS Additional order review: Laboratory Results 03/21/19 22:40 Urine HCG, Qual Negative Progress Note - Progress Note Progress Note: PGU is negative. Left shoulder x-ray performed. Preliminary interpretation by me: No evidence of fracture or dislocation. Results discussed with the patient. Clinical presentation consistent with shoulder sprain. Sling placed on the left upper extremity. 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 Meanwhile, she should call the orthopedic group that she has been followed by in the past ('s) in the a.m. to arrange follow-up within the next 48 hours. Toradol IM offer to the patient but she refused, stating that she would take naproxen orally at home. *DC/Admit/Observation/Transfer Diagnosis at time of Disposition: Sprain of shoulder, left Qualifiers: Encounter type: initial encounter Shoulder sprain type: rotator cuff capsule Qualified Code(s): S43.422A - Sprain of left rotator cuff capsule, initial encounter - Discharge Dispostion Disposition: HOME Condition at time of disposition: Stable - Referrals Referrals: Mario Nicholson MD [Staff Physician] - Call tomorrow - Patient Instructions Printed Discharge Instructions: Shoulder Sprain Additional Instructions: Ice to left shoulder for the next 48 hours Naproxen 500 mg (take with food) twice a day as needed for pain Sling to left arm during the day for the next 3 days No work until seen by orthopedics Call Dr.Ilan allen tomorrow a.m. to arrange follow-up appointment within the next 48 hours - Post Discharge Activity Forms/Work/School Notes: Back to Work
== END 2019-03-21 23:32 | disposition home or self-care (01) ==
LOC: FER 21:20
DX: S43.422A Sprain of left rotator cuff capsule, initial encounter (principal); X58.XXXA Exposure to other specified factors, initial encounter; Y93.89 Activity, other specified; Y92.239 Unspecified place in hospital as the place of occurrence of the external cause; Y99.0 Civilian activity done for income or pay; Z98.84 Bariatric surgery status; F41.9 Anxiety disorder, unspecified; Z86.73 Personal history of transient ischemic attack (TIA), and cerebral infarction without residual deficits; J45.909 Unspecified asthma, uncomplicated
CPT/HCPCS: 73030-TC-LT-FY; 84703; 99283-25

== ENCOUNTER 2019-05-16 22:57 | Emergency (ER) | payer OTHER ==
[2019-05-16 22:59] VITALS: TEMP 97.6; BMI 33.8
[2019-05-17] MEDS ORDERED: ACETAMINOPHEN INJECTION 100 ML IVPB ONE (00:44)
--- NOTE | 2019-05-17 01:15 | PDOC ---
Attending Attestation - Resident Resident Name: TeoScar - ED Attending Attestation I have performed the following: I have examined & evaluated the patient, The case was reviewed & discussed with the resident, I agree w/resident's findings & plan - HPI HPI: 05/17/19 04:06 see resident hpi - Physicial Exam PE: 05/17/19 04:06 agree with resident exam - Medical Decision Making 05/17/19 04:06 43-year-old female with lower abdominal/pelvic pain Pelvic ultrasound shows a uterine fibroid with no other significant findings Patient has persistent pain despite analgesics, she is status post appendectomy Will CT to rule out obstruction or other surgical pathology
[2019-05-17] MEDS ORDERED: ONDANSETRON 4 MG/2 ML VIAL IVPUSH ONE (01:16)
[2019-05-17] MEDS ORDERED: morphine CARPU-JECT 4 MG/1 ML DISP.SYRIN IVPUSH ONE (01:16)
[2019-05-17] MEDS ORDERED: ACETAMINOPHEN 1000 MG/100 ML VIAL (NON FORMULARY) IVPB ONE (01:21)
[2019-05-17] MEDS ORDERED: ONDANSETRON 4 MG/2 ML VIAL ONE (01:22)
[2019-05-17] MEDS ORDERED: MORPHINE SULFATE 2 MG/ML VIAL ONE (01:22)
--- NOTE | 2019-05-17 01:37 | PDOC ---
History of Present Illness - General Chief Complaint: Pain Stated Complaint: ABDOMINAL PAIN Time Seen by Provider: 05/17/19 01:15 - History of Present Illness Initial Comments: 05/17/19 01:36 43 yo F with h/o appendectomy, cholecystectomy, BL tubal ligation, who p/w BL lower abdominal pain. Patient reports gradual, unremitting, BL, crampy, lower, abdominal pain, worse with erect posture, beginning at 1100 AM 05/16/19. No identifiable alleviators. Not worse with PO intake Reports h/o similar pain. Endorses 3 epsiodes of NBNB emesis following pain. Denies abdominal trauma. Pain not improved with Tylenol, Tramadol. Denies KWONG, vision change, palpitations , cough, wheezing, orthopena, PND, leg swelling/pain, F,C, CP, SOB, urinary complaints, hematuria, BPR, pelvic pain, vaginal bleeding/discharge, diarrhea, constipation, lightheadedness, weakness, sensory changes. Pt. last sexually active 6 months ago. Denies h/o STI. 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 Past History - Past Medical History Allergies/Adverse Reactions: Allergies Allergy/AdvReac Type Severity Reaction Status Date / Time Penicillins Allergy Intermediate Verified 05/17/19 03:17 Home Medications: Ambulatory Orders Albuterol 0.083% Nebulizer Alida [Ventolin 0.083% Nebulizer Soln -] 1 neb NEB Q4H PRN 05/25/18 Albuterol Sulfate Inhaler - [Ventolin HFA Inhaler -] 1 - 2 inh PO QID PRN Ibuprofen [Motrin -] 400 mg PO TID PRN #7 tablet 05/25/18 Ranitidine [Zantac -] 150 mg PO BID #7 tablet 05/25/18 Anemia: Yes Asthma: Yes Cancer: No Cardiac Disorders: No CVA: Yes (TIA 2016) COPD: No CHF: No Dementia: No Diabetes: No (but hypoglycemic sometimes) GI Disorders: Yes (lactose intolerant) Disorders: No HTN: No Hypercholesterolemia: No Liver Disease: No Psychiatric Problems: (Anxiety) Seizures: No Thyroid Disease: No - Surgical History Abdominal Surgery: Yes (GASTRIC BYPASS) Appendectomy: Yes Cardiac Surgery: No Cholecystectomy: Yes Gastric Stapling: (GASTRIC BYPASS) Lung Surgery: No Neurologic Surgery: No - Reproductive History Is Patient Now?: No (#): 5 Para: 2 Cervical CA: No Dysfunctional Uterine Bleeding: No Ectopic : No Endometrial CA: No Polycystic Ovaries: No Therapeutic (s) & number: No Tubal Ligation: No Spontaneous : 0 - Immunization History Td Vaccination: No Immunization Up to Date: Yes - Psycho Social/Smoking Cessation Hx Smoking Status: No Smoking History: Never smoked Have you smoked in the past 12 months: No Number of Cigarettes Smoked Daily: 0 Information on smoking cessation initiated: No Hx Alcohol Use: No Drug/Substance Use Hx: No Substance Use Type: None Hx Substance Use Treatment: No Review of Systems - Review of Systems Comments:: 05/17/19 01:38 GENERAL/CONSTITUTIONAL: No fever or chills. No weakness. HEAD, EYES, EARS, NOSE AND THROAT: No change in vision. No ear pain or discharge. No sore throat. CARDIOVASCULAR: No chest pain or shortness of breath RESPIRATORY: No cough, wheezing, or hemoptysis. GASTROINTESTINAL: BL Lower abdominal pain. + nausea, vomiting. No diarrhea or constipation. GENITOURINARY: No dysuria, frequency, or change in urination. MUSCULOSKELETAL: No joint or muscle swelling or pain. No neck or back pain. SKIN: No rash NEUROLOGIC: No headache, vertigo, loss of consciousness, or change in strength/ sensation. ENDOCRINE: No increased thirst. No abnormal weight change HEMATOLOGIC/LYMPHATIC: No anemia, easy bleeding, or history of blood clots. ALLERGIC/IMMUNOLOGIC: No hives or skin allergy. *Physical Exam - Vital Signs Last Vital Signs Temp Pulse Resp BP Pulse Ox 97.6 F 70 23 H 131/77 100 05/16/19 22:57 05/16/19 22:57 05/16/19 22:57 05/16/19 22:57 05/16/19 22:57 - Physical Exam Comments: 05/17/19 01:38 GENERAL: Awake, alert, and fully oriented, in no acute distress HEAD: No signs of trauma, normocephalic, atraumatic EYES: PERRLA, EOMI, sclera anicteric, conjunctiva clear ENT: Hearing grossly normal, nares patent, oropharynx clear without exudates. Moist mucosa NECK: Normal ROM, supple, no lymphadenopathy, JVD, or masses LUNGS: No distress, speaks full sentences, clear to auscultation bilaterally HEART: Regular rate and rhythm, normal S1 and S2, no murmurs, rubs or gallops, peripheral pulses normal and equal bilaterally. ABDOMEN: Soft, nontender, normoactive bowel sounds. No guarding, no rebound. No masses PELVIC: Chaperoned by Joleen Chang. Nml appearing external genitalia, with absent lesions. Vaginal vault without blood, or discharge. Cervical os closed. Neg CMT on BM. Neg adenexal ttp, or mass palpated. EXTREMITIES : Normal inspection, Normal range of motion, no edema. No clubbing or cyanosis NEUROLOGICAL: Cranial nerves II through XII grossly intact. Normal speech, normal gait, no focal sensorimotor deficits SKIN: Warm, Dry, normal turgor, no rashes or lesions noted ED Treatment Course - LABORATORY CBC & Chemistry Diagram: 05/17/19 02:30 05/17/19 02:30 - ADDITIONAL ORDERS Additional order review: 05/17/19 02:49 Patient Information: : 1975 Order Type: Preliminary Name: ELLI LUZ Sex: F Study Description: US PELVIC Modality: US Location: [facility] Referring Physician: SYDNEY CARPIO Comments: Madie Rowley MD wrote on May 17, 2019 at 02:33 AM: Referring Physician: SYDNEY CARPIO Patient Name: NATTY CALLOWAY THIS IS A PRELIMINARY REPORT FROM [facility] DATE OF SERVICE: 2019-05-17 01:31:28 IMAGES: 46 EXAM: TRANSVAGINAL ULTRASOUND US HISTORY: Rule out right ovarian torsion. COMPARISON: None. FINDINGS: Anteverted uterus with endometrial thickness of 4.4 mm. Posterior uterine leiomyoma measuring 1.5 x 1.9 x 1.9 cm. Nabothian cyst in the cervix. No free fluid in the cul-de- sac. Right ovary measuring 4.3 x 2 x 2.2 cm in the left ovary measuring 2.7 x 1.4 x 1.8 cm. Prominent follicles noted in the right ovary with dominant follicle measuring 2.1 x 1.3 x 1.8 cm. Color Doppler demonstrated in both adnexa and ovaries. Arterial and venous pulsed-wave Doppler demonstrated in both ovaries. CONFIDENTIALITY NOTICE: This information is intended only for the use of the recipient(s) named above. If you are not the intended recipient, or a person responsible for delivering it to the intended recipient, you are hereby notified that any disclosure, copying, distribution or use of any of the information contained in or attached to this transmission is STRICTLY PROHIBITED. If you have received this transmission in error, please immediately notify [facility] Consumer Studies Professor and destroy the original transmission and its attachments without saving them in any manner [address] [place] [address] Phone: [phone]) Fax: Email: [email or web address] Patient Information: : 1975 Order Type: Preliminary Name: ELLI LUZ Sex: F Study Description: US PELVIC Modality: US Location: [facility] Referring Physician: SYDNEY CARPIO IMPRESSION: 1. No evidence of ovarian torsion. 2. Dominant follicle in the right ovary. 3. Posterior uterine leiomyoma. THIS DOCUMENT HAS BEEN ELECTRONICALLY SIGNED Madie Rowley MD 05/17/2019 02:31 NINI Zurita. Please call Imaging Consumer Studies Professor [phone]) with questions. Madie Rowley MD Clinicians - Please contact Imaging Consumer Studies Professor with further questions at [phone]) Patients - Please contact your Ordering Provider with questions. - RADIOLOGY Radiology Studies Ordered: Category Date Time Status TRANSVAGINAL ULTRASOUND US [US] Stat Ultrasound 05/17/19 01:15 Ordered Medical Decision Making - Medical Decision Making 05/17/19 01:46 43 yo F with h/o appendectomy, cholecystectomy, BL tubal ligation, who p/w BL lower abdominal pain. Vitals wnl, AF, A&Ox3. Physical exam unremarkable. R/o ovarian torsion. Will Will assess for , cytsitis, colitis, nephrolithiasis. Will provide pain control, reassess. Ed Course: Morphine, Zofran 05/17/19 02:49 TVUS: 1. No evidence of ovarian torsion. 2. Dominant follicle in the right ovary. 3. Posterior uterine leiomyoma. 05/17/19 04:28 Laboratory Tests 05/17/19 05/17/19 05/17/19 02:30 02:30 04:00 WBC 6.8 Hgb 11.1 Hct 35.6 Plt Count 369 D Sodium 137 Potassium 4.5 BUN 14.0 Creatinine 0.8 Creatine Kinase 228 H Troponin I < 0.02 Lipase 144 Beta HCG, Quant < 1.0 Urine Color Yellow Urine Ketones Trace H Urine Blood Negative Urine Nitrite Negative Ur Leukocyte Esterase Negative 05/17/19 04:[address] AP Patient expressed understanding of AMA and risk of undiagnosed medical illness, permanent disability, or . Discharge - Discharge Information Problems reviewed: Yes Clinical Impression/Diagnosis: Abdominal pain Qualifiers: Abdominal location: lower abdomen, unspecified Qualified Code(s): R10.30 - Lower abdominal pain, unspecified Disposition: AGAINST MEDICAL ADVICE - Follow up/Referral Referrals: Amarilis John MD [Staff Physician] - - Patient Discharge Instructions Patient Printed Discharge Instructions: DI for Abdominal Pain-Adult Additional Instructions: Please return to the emergency department with any new or worsening symptoms or concerns. Please follow up with your primary care physician and gynecology within 72 hours. As discussed you may have undiagnosed illness or medical diagnosis that if left untreated can lead to multiple complications including, but not limited to permanent disability and . Should you reconsider you should turn to the emergency department for evaluation. - Post Discharge Activity
[2019-05-17 02:52] LABS: BASO % 0.6 % (0-2.0); EOS % 0.4 % (0-4.5); HEMATOCRIT 35.6 % (32.4-45.2); HEMOGLOBIN 11.1 GM/dL (10.7-15.3); LYMPH % 17.8 % (8-40); MCH 25.3 pg (25.7-33.7); MCHC 31.3 g/dl (32.0-36.0); MEAN PLT VOLUME 8.2 fl (7.5-11.1); MONO % 5.3 % (3.8-10.2); NEUT % 75.9 % (42.8-82.8); PLATELET COUNT 369 K/MM3 (134-434); RBC 4.39 M/mm3 (3.60-5.2); RDW 16.3 % (11.6-15.6); WHITE BLOOD COUNT 6.8 K/mm3 (4.0-10.0)
[2019-05-17 03:33] LABS: CHLORIDE 103 mmol/L (98-107); CO2 26 mmol/L (21-32); GLUCOSE,RANDOM 110 mg/dL (74-106); SODIUM 137 mmol/L (136-145)
[2019-05-17 03:34] LABS: CALCIUM 9.1 mg/dL (8.5-10.1)
[2019-05-17 03:35] LABS: POTASSIUM 4.5 mmol/L (3.5-5.1); SGPT/ALT 53 U/L (13-61)
[2019-05-17 04:22] LABS: PH,URINE 5.5 (5.0-8.0); URINE APPEARANCE CLEAR; URINE BILIRUBIN NEGATIVE (NEGATIVE); URINE COLOR YELLOW; URINE GLUCOSE (UA) NEGATIVE (NEGATIVE); URINE KETONE TRACE (NEGATIVE); URINE LEUK ESTERASE NEGATIVE (NEGATIVE); URINE NITRITE NEGATIVE (NEGATIVE); URINE PROTEIN NEGATIVE (NEGATIVE)
[2019-05-17 05:05] VITALS: BP 130/68; PULSE 78
[2019-05-17 05:11] LABS: ALBUMIN 3.8 g/dl (3.4-5.0); ALK PHOS 88 U/L (45-117); ANION GAP 9 MMOL/L (8-16); BILIRUBIN,TOTAL 1.4 mg/dL (0.2-1); BLOOD UREA NITROGEN 13.8 mg/dL (7-18); CREATININE 0.9 mg/dL (0.55-1.3); LIPASE 144 U/L (73-393); MAGNESIUM 2.2 mg/dL (1.8-2.4); SGOT/AST 65 U/L (15-37); TOT PROT 7.7 g/dl (6.4-8.2)
== END 2019-05-17 04:55 | disposition left against medical advice (07) ==
LOC: JER 22:57
PROC: 3E033NZ Introduction of Analgesics, Hypnotics, Sedatives into Peripheral Vein, Percutaneous Approach (ICD-10-PCS; principal; 2019-05-16)
PROC: 3E033GC Introduction of Other Therapeutic Substance into Peripheral Vein, Percutaneous Approach (ICD-10-PCS; 2019-05-16)
DX: R10.30 Lower abdominal pain, unspecified (principal); Z88.0 Allergy status to penicillin; Z98.84 Bariatric surgery status; F41.9 Anxiety disorder, unspecified; Z86.73 Personal history of transient ischemic attack (TIA), and cerebral infarction without residual deficits; Z91.011 Allergy to milk products
CPT/HCPCS: 36415; 76830-TC; 80053; 81003; 82550; 82553; 83690; 83735; 84484; 84702; 85025; 99283-25; J0131

== ENCOUNTER 2019-05-27 15:20 | Emergency (ER) | payer OTHER ==
[2019-05-27 16:27] VITALS: TEMP 98.2; BMI 34.7
--- NOTE | 2019-05-27 16:37 | PDOC ---
History of Present Illness - General Chief Complaint: Pain Stated Complaint: abd pain Time Seen by Provider: 05/27/19 15:52 - History of Present Illness Initial Comments: 05/27/19 16:33 43 yo F with h/o appendectomy, cholecystectomy, BL tubal ligation, who p/w diffuse abdominal pain. Multiple visits to the hospital for abdominal pain that she says are identical to this one.. Last admission was diagnosed with uterine fibroids as the cause of her pain but subsequent visit with Dr. Baires her OBGYN he told her that there were probably too small to explain her pain. Patient tried taking zofran for her pain and nausea which didn't relieve her pain. Didn't try ibuprofen, cannot tolerate tylenol. Denies fever, chills, dysuria, diarrhea or constipation. Last diuresis and bm earlier this morning. Past History - Past Medical History Allergies/Adverse Reactions: Allergies Allergy/AdvReac Type Severity Reaction Status Date / Time Penicillins Allergy Intermediate Verified 05/27/19 15:21 Home Medications: Ambulatory Orders Albuterol 0.083% Nebulizer Alida [Ventolin 0.083% Nebulizer Soln -] 1 neb NEB Q4H PRN 05/25/18 Albuterol Sulfate Inhaler - [Ventolin HFA Inhaler -] 1 - 2 inh PO QID PRN Ondansetron HCl [Zofran] 4 mg PO DAILY 05/27/19 Anemia: Yes Asthma: Yes Cancer: No Cardiac Disorders: No CVA: Yes (TIA 2016) COPD: No CHF: No Dementia: No Diabetes: No (but hypoglycemic sometimes) GI Disorders: Yes (lactose intolerant) Disorders: No HTN: No Hypercholesterolemia: No Liver Disease: No Psychiatric Problems: (Anxiety) Seizures: No Thyroid Disease: No - Surgical History Abdominal Surgery: Yes (GASTRIC BYPASS) Appendectomy: Yes Cardiac Surgery: No Cholecystectomy: Yes Gastric Stapling: (GASTRIC BYPASS) Lung Surgery: No Neurologic Surgery: No - Reproductive History (#): 5 Para: 2 Cervical CA: No Dysfunctional Uterine Bleeding: No Ectopic : No Endometrial CA: No Polycystic Ovaries: No Therapeutic (s) & number: No Tubal Ligation: No Spontaneous : 0 - Immunization History Td Vaccination: No Immunization Up to Date: Yes - Psycho Social/Smoking Cessation Hx Smoking Status: No Smoking History: Never smoked Have you smoked in the past 12 months: No Number of Cigarettes Smoked Daily: 0 Information on smoking cessation initiated: No Hx Alcohol Use: No Drug/Substance Use Hx: No Substance Use Type: None Hx Substance Use Treatment: No Abd/GI Specific PMHX - Complaint Specific PMHX Colitis: No Diverticulitis: No Gall Bladder Disease: No GERD: No Review of Systems - Review of Systems Able to Perform ROS?: Yes Is the patient limited Amharic proficient: No Constitutional: No: Symptoms Reported HEENTM: No: Symptoms Reported Respiratory: No: Symptoms reported Cardiac (ROS): No: Symptoms Reported ABD/GI: Yes: See HPI : No: Symptoms Reported Musculoskeletal: No: Symptoms Reported Integumentary: No: Symptoms Reported Neurological: No: Symptoms reported All Other Systems: Reviewed and Negative *Physical Exam - Vital Signs Last Vital Signs Temp Pulse Resp BP Pulse Ox 98.2 F 82 20 128/84 100 05/27/19 15:20 05/27/19 15:20 05/27/19 15:20 05/27/19 15:20 05/27/19 15:20 - Physical Exam General Appearance: Yes: Nourished, Appropriately Dressed. No: Apparent Distress HEENT: positive: EOMI, ROSETTA, Normal ENT Inspection Respiratory/Chest: positive: Lungs Clear, Normal Breath Sounds. negative: Chest Tender, Respiratory Distress Cardiovascular: positive: Regular Rhythm, Regular Rate, S1, S2 Gastrointestinal/Abdominal: positive: Normal Bowel Sounds, Tender (diffusely, all quadrants), Soft. negative: Protuberent, Distended, Guarding, Rebound, Tenderness Extremity: positive: Normal Capillary Refill, Normal Inspection, Normal Range of Motion Neurologic: positive: Fully Oriented, Alert, Normal Mood/Affect, Normal Response ED Treatment Course - LABORATORY CBC & Chemistry Diagram: 05/27/19 17:00 05/27/19 17:00 Medical Decision Making - Medical Decision Making 05/27/19 19:05 43 yo F with h/o appendectomy, cholecystectomy, BL tubal ligation, who p/w diffuse abdominal pain. Multiple visits to the hospital for abdominal pain that she says are identical to this one.. DDX: pancratitis, SBO, gastritis, gastroparesis Basic labs wnl. Will obtain CT abdomen pelvis with contrast Patient signed out to Dr. Teran Discharge - Discharge Information Problems reviewed: Yes Clinical Impression/Diagnosis: Abdominal pain Condition: Stable Disposition: HOME - Follow up/Referral Referrals: Guillermo Hernandez MD [Non Staff, Medical] - - Patient Discharge Instructions - Post Discharge Activity
[2019-05-27] MEDS ORDERED: IBUPROFEN 600 MG TABLET (FP) PO ONE (16:41)
[2019-05-27] MEDS ORDERED: KETOROLAC TROMETHAMINE 15 MG/ML VIAL ONE (16:58)
[2019-05-27] MEDS ORDERED: KETOROLAC TROMETHAMINE 15 MG/ML VIAL IVPUSH ONE (16:58)
[2019-05-27 17:08] LABS: HEMATOCRIT 35.8 % (32.4-45.2); HEMOGLOBIN 11.7 GM/dl (10.7-15.3); MCH 26.2 pg (25.7-33.7); MCHC 32.6 g/dl (32.0-36.0); MEAN CELL VOLUME 80.4 fl (80-96); MEAN PLT VOLUME 7.7 fl (7.5-11.1); PLATELET COUNT 371 K/MM3 (134-434); RBC 4.45 M/mm3 (3.60-5.2); RDW 15.3 % (11.6-15.6); WHITE BLOOD COUNT 6.7 K/mm3 (4.0-10.8)
[2019-05-27 17:09] LABS: EPITHELIAL CELLS FEW /hpf
[2019-05-27 17:30] LABS: ALBUMIN 4.1 g/dl (3.4-5.0); BILIRUBIN,TOTAL 0.7 mg/dl (0.2-1); CALCIUM 9.3 mg/dl (8.5-10); CREATININE 0.8 mg/dl (0.55-1.3); POTASSIUM 4.3 mmol/L (3.5-5.1)
[2019-05-27 17:47] LABS: PLATELET ESTIMATE ADEQUATE
--- NOTE | 2019-05-27 18:41 | PDOC ---
Attending Attestation - Resident Resident Name: BonMalcolm - ED Attending Attestation I have performed the following: I have examined & evaluated the patient, The case was reviewed & discussed with the resident, I agree w/resident's findings & plan, Exceptions are as noted - HPI HPI: 05/27/19 18:52 43-year-old female history of asthma, gastric bypass in 2006, tubal ligation May 2018, appendectomy, cholecystectomy presents to the emergency department with abdominal pain for 2 weeks. Patient reports the abdominal pain is diffuse across her entire abdomen, and at times feels crampy almost like labor pains. She states the pain is the worst over the area just above her umbilicus. She reports 4 episodes of nonbloody nonbilious emesis today that she states looked like water which is what prompted her to come to the emergency department today for evaluation. She denies any associated fevers or chills. She had a normal bowel movement this morning that was not dark or bloody. She tried Zofran and water with baking soda at home with no relief of her symptoms. She tried the water with baking soda as she was concerned her symptoms were due to gas pains. She denies any dysuria, frequency, hematuria. She reports multiple episodes of similar pain over the last year and a half. She was seen at [facility] emergency department 2 weeks ago for the symptoms, at which point she had a transvaginal ultrasound that showed a fibroid. She left AGAINST MEDICAL ADVICE at that time before a CT scan was done for further evaluation of her symptoms. She states she had the pain last year as well, and saw a GI doctor who obtained a colonoscopy that was reportedly normal. She is scheduled for an endoscopy next week at [facility] for this pain. - Physicial Exam PE: 05/27/19 19:01 GENERAL: Awake, alert, and fully oriented, in no acute distress talking on the phone EYES: PERRLA, EOMI, sclera anicteric, conjunctiva clear ENT: Oropharynx clear without exudates. Moist mucosa NECK: Normal ROM, supple, no lymphadenopathy, JVD, or masses LUNGS: Breath sounds equal, clear to auscultation bilaterally. No wheezes, and no crackles HEART: Regular rate and rhythm, normal S1 and S2, no murmurs, rubs or gallops ABDOMEN: Soft, mild supraumbilical ttp, normoactive bowel sounds. No guarding, no rebound. No masses. No CVAT. EXTREMITIES: Normal range of motion, no edema. No cords, erythema, or tenderness NEUROLOGICAL: Normal speech, cranial nerves intact, equal strength and sensation b/l SKIN: Warm, Dry, normal turgor, no rashes or lesions noted. - Medical Decision Making 05/27/19 19:03 43-year-old female with significant surgical history including gastric bypass, presents to the emergency department with abdominal pain for 2 weeks, that has been present intermittently for a year. Pain is located just superior to her umbilicus. Differential includes SBO versus ileus versus pancreatitis versus gastritis versus colitis. Labs thus far including lipase all within normal limits. Patient is pending a CT scan with PO/IV contrast. Pain is improved with IV Toradol. Patient was initially offered IV Tylenol, but declined. Case signed out to Dr. Terna for follow-up on CT scan, reassessment, and dispo
[2019-05-27 20:10] VITALS: BP 139/100; PULSE 79
[2019-05-27] MEDS ORDERED: SODIUM CHLORIDE 0.9% 500 ML INFUS.BAG IV ONE (20:24)
--- NOTE | 2019-05-27 21:12 | PDOC ---
*Physical Exam - Vital Signs Last Vital Signs Temp Pulse Resp BP Pulse Ox 98.2 F 79 15 139/100 100 05/27/19 15:20 05/27/19 20:09 05/27/19 20:09 05/27/19 20:09 05/27/19 20:09 ED Treatment Course - LABORATORY CBC & Chemistry Diagram: 05/27/19 17:00 05/27/19 17:00 - ADDITIONAL ORDERS Additional order review: Laboratory Results 05/27/19 05/27/19 05/27/19 17:48 17:00 16:54 Sodium 135 L Potassium 4.3 Chloride 104 Carbon Dioxide 23 Anion Gap 8 BUN 14.0 Creatinine 0.8 Est GFR (CKD-EPI)AfAm 104.65 Est GFR (CKD-EPI)NonAf 90.30 Random Glucose 100 Calcium 9.3 Total Bilirubin 0.7 AST 33 ALT 30 Alkaline Phosphatase 66 Total Protein 8.0 Albumin 4.1 Lipase 244 Urine Color Urine Appearance Urine pH Urine Protein Urine Glucose (UA) Urine Ketones Urine Blood Urine Nitrite Urine Bilirubin Urine Urobilinogen Ur Leukocyte Esterase Urine RBC Urine WBC Ur Transition Epith Cell Urine Bacteria Urine HCG, Qual Negative 05/27/19 16:54 Sodium Potassium Chloride Carbon Dioxide Anion Gap BUN Creatinine Est GFR (CKD-EPI)AfAm Est GFR (CKD-EPI)NonAf Random Glucose Calcium Total Bilirubin AST ALT Alkaline Phosphatase Total Protein Albumin Lipase Urine Color Yellow Urine Appearance Clear Urine pH 7.0 Urine Protein 1+ H Urine Glucose (UA) Negative Urine Ketones Negative Urine Blood Negative Urine Nitrite Negative Urine Bilirubin Negative Urine Urobilinogen 1.0 Ur Leukocyte Esterase Negative Urine RBC 5-10 Urine WBC 2-5 Ur Transition Epith Cell Few Urine Bacteria Few Urine HCG, Qual 05/27/19 17:00 RBC 4.45 MCV 80.4 MCHC 32.6 RDW 15.3 MPV 7.7 Neutrophils % No Result Required. Lymphocytes % No Result Required. - Medications Given in the ED: ED Medications Discontinued Medications Generic Name Dose Route Start Last Admin Trade Name Freq PRN Reason Stop Dose Admin Ibuprofen 600 mg 05/27/19 16:41 05/27/19 19:07 Motrin - PO 05/27/19 16:42 Not Given ONCE ONE Ketorolac Tromethamine 15 mg 05/27/19 16:58 05/27/19 17:01 Toradol Injection - IVPUSH 05/27/19 16:59 15 mg ONCE ONE Administration Sodium Chloride 1,000 ml 05/27/19 20:24 05/27/19 20:27 Normal Saline - IV 05/27/19 20:25 1,000 ml ONCE ONE Administration Medical Decision Making - Medical Decision Making 05/27/19 21:11 Patient Name: NATTY CALLOWAY THIS IS A PRELIMINARY REPORT FROM [facility] [employer] DATE OF SERVICE: 2019-05-27 20:12:44 IMAGES: [id number] EXAM:CT ABDOMEN AND PELVIS WITH CONTRAST CLINICAL HISTORY: 43-year-old female, abdominal pain COMPARISON: No available comparison. PROCEDURE COMMENTS: CT of the abdomen and pelvis was performed following administration of IV contrast. Enteric contrast was administered prior to the examination. Radiation Dose Reduction: This CT exam was performed using one or more of the following dose reduction techniques: automated exposure control, adjustment of the mA and/or kV according to patient size, use of iterative reconstruction technique. Radiation Dose: Not available FINDINGS: Lower thorax: Normal. Liver and biliary tree: Mild intrahepatic biliary dilatation which can be normal status post cholecystectomy. Gallbladder: Prior cholecystectomy Spleen: Normal Pancreas: Normal Adrenal glands: Normal Kidneys and ureters: No hydronephrosis or urolithiasis. Urinary Bladder: Not fully distended which limits evaluation; no gross abnormality. Gastrointestinal tract: Postsurgical changes of Ricky-en-Y gastric bypass. Small hiatal hernia. No bowel wall thickening or evidence of obstruction. Enteric contrast is noted within the mid small bowel the time of scanning. The appendix is not definitively identified. There is moderate stool burden within the colon. The rectum is mildly thick walled; cannot exclude acute fractures or inflammatory proctitis; alternatively this is related to under distention. Peritoneal cavity: Small volume of free fluid within the pelvis. Reproductive Organs: The uterus and bilateral adnexa are unremarkable although limited evaluation on CT Vasculature: The aorta and proximal branch arteries are patent. Lymph nodes: Amorphous soft tissue density surrounding the mesenteric vessels within the mid mesentery. There is a wilberto appearance of the mesentery; this is a very nonspecific finding and differential considerations include mesenteric adenitis, early lymphoma, among numerous other reactive/inflammatory processes. Abdominal wall: Normal Musculoskeletal: No acute fracture. IMPRESSION: The rectum is mildly thick walled; cannot exclude acute fractures or inflammatory proctitis; alternatively this is related to under distention. Status post Ricky-en-Y gastric bypass without evidence of obstruction. Amorphous soft tissue density surrounding the mesenteric vessels within the mid mesentery. There is a wilberto appearance of the mesentery; this is a very nonspecific finding and differential considerations include mesenteric adenitis, early lymphoma, among numerous other reactive/inflammatory processes. 05/27/19 21:19 Pt given a copy of her CT result. She will follwo with AILYN at [facility] later this week and I have asked her to take the report to the GI doc, so that he can schedule a colonoscopy; sigmoidocopy/proctoscopy; he can also follow her meseneric adenitis situation. Pt is stable for d/c home; she has normal vitals and her abd is NT at this time She concedes that she is stressed and depressed and not eating, as a result we have discussed the importance of a balanced diet. Discharge - Discharge Information Problems reviewed: Yes Clinical Impression/Diagnosis: Abdominal pain Condition: Stable Disposition: HOME - Follow up/Referral Referrals: Guillermo Hernandez MD [Non Staff, Medical] - - Patient Discharge Instructions - Post Discharge Activity
== END 2019-05-27 21:22 | disposition home or self-care (01) ==
LOC: FER 15:20
PROC: 3E0333Z Introduction of Anti-inflammatory into Peripheral Vein, Percutaneous Approach (ICD-10-PCS; principal; 2019-05-27)
PROC: 3E0337Z Introduction of Electrolytic and Water Balance Substance into Peripheral Vein, Percutaneous Approach (ICD-10-PCS; 2019-05-27)
DX: R10.9 Unspecified abdominal pain (principal); Z88.0 Allergy status to penicillin; Z98.84 Bariatric surgery status; J45.909 Unspecified asthma, uncomplicated; K92.9 Disease of digestive system, unspecified
CPT/HCPCS: 36415; 74177-TC; 80053; 81003; 81015; 83690; 84703; 85025; 87086; 99283-25; Q9967

== ENCOUNTER 2019-05-30 22:24 | Emergency (ER) | payer SELFPAY ==
--- NOTE | 2019-05-30 22:44 | PDOC ---
History of Present Illness <ValPhuong Leonie - Last Filed: 05/31/19 00:42> - History of Present Illness Initial Comments: 05/30/19 22:45 43 year old female with a PMH of Gastric Bypass (2006), Appendectomy, Cholecystectomy, Asthma and CT scan on 05/27/19 showing mesenteric adenitis who presents to our ED c/o persistent abdominal pain and two episodes of bloody emesis. Pain is sharp midline and radiates to her back and has been intermittent for the last two weeks. States she took some Tylenol 4 provided by her PMD around 4 p.m. that helped her pain. Around 10 p.m. this evening patient vomited twice yellowish with saturnino blood prompting her daughter to call 911. Denies any associated fevers or chills. She had a small hard bowel movement this morning and then had a second watery bowel movement after taking Magnesium Citrate this morning. Reports drinking some red colored HiC earlier this afternoon. H/o colonoscopy last year that she reports was normal and is scheduled for an endoscopy next week. As per EMR, patient evaluated at [facility] on 05/27/19 with CTAP showing mesenteric adenitis. TVUS on prior evaluation showed fibroid. Allergy: Penicillin Surgical: Gastric Bypass (2006), Appendectomy, Cholecystectomy PMD: Dr. Mahesh Kearney M.D. <Katherine Milan - Last Filed: 05/31/19 01:42> - General Stated Complaint: ABDOMINAL PAIN Time Seen by Provider: 05/30/19 22:28 Past History <Phuong Neal - Last Filed: 05/31/19 00:42> - Past Medical History Anemia: Yes Asthma: Yes Cancer: No Cardiac Disorders: No CVA: Yes (TIA 2017) COPD: No CHF: No Dementia: No Diabetes: No (but hypoglycemic sometimes) GI Disorders: Yes (lactose intolerant) Disorders: No HTN: No Hypercholesterolemia: No Liver Disease: No Psychiatric Problems: (Anxiety) Seizures: No Thyroid Disease: No - Surgical History Abdominal Surgery: Yes (GASTRIC BYPASS) Appendectomy: Yes Cardiac Surgery: No Cholecystectomy: Yes Gastric Stapling: (GASTRIC BYPASS) Lung Surgery: No Neurologic Surgery: No - Reproductive History (#): 5 Para: 2 Cervical CA: No Dysfunctional Uterine Bleeding: No Ectopic : No Endometrial CA: No Polycystic Ovaries: No Therapeutic (s) & number: No Tubal Ligation: No Spontaneous : 0 - Immunization History Td Vaccination: No Immunization Up to Date: Yes - Psycho Social/Smoking Cessation Hx Smoking Status: No Smoking History: Never smoked Have you smoked in the past 12 months: No Number of Cigarettes Smoked Daily: 0 Hx Alcohol Use: No Drug/Substance Use Hx: No Substance Use Type: None Hx Substance Use Treatment: No <KayliKatherine henriquez - Last Filed: 05/31/19 01:42> - Past Medical History Allergies/Adverse Reactions: Allergies Allergy/AdvReac Type Severity Reaction Status Date / Time Penicillins Allergy Intermediate Verified 05/30/19 22:49 Home Medications: Ambulatory Orders Albuterol 0.083% Nebulizer Alida [Ventolin 0.083% Nebulizer Soln -] 1 neb NEB Q4H PRN 05/25/18 Albuterol Sulfate Inhaler - [Ventolin HFA Inhaler -] 1 - 2 inh PO QID PRN Acetaminophen with Codeine [Acetaminophen-Cod #4 Tablet] 1 tab PO QID PRN Mag Hydrox/Al Hydrox/Simeth [Mylanta Suspension -] 30 ml PO Q6H #1 bottle Ondansetron [Zofran *Odt*] 4 mg SL BID PRN 3 Days #6 od.tablet 05/31/19 Review of Systems - Review of Systems Constitutional: No: Fever HEENTM: No: Recent change in vision Respiratory: No: Cough, Shortness of Breath Cardiac (ROS): No: Chest Pain, Lightheadedness, Palpitations, Syncope ABD/GI: Yes: Constipated, Vomiting, Abdominal cramping : No: Burning, Hematuria <Katherine Milan - Last Filed: 05/31/19 01:42> *Physical Exam - Vital Signs Last Vital Signs Temp Pulse Resp BP Pulse Ox 98.3 F 92 H 20 125/82 97 05/30/19 22:30 05/30/19 22:30 05/30/19 22:30 05/30/19 22:30 05/30/19 22:30 <Phuong Neal - Last Filed: 05/31/19 00:42> - Physical Exam General Appearance: Yes: Nourished, Appropriately Dressed HEENT: positive: Normal Voice, Hearing Grossly Normal Neck: positive: Trachea midline, Supple Respiratory/Chest: positive: Lungs Clear, Normal Breath Sounds Cardiovascular: positive: S1, S2. negative: Edema Vascular Pulses: Dorsalis-Pedis (R): 2+, Doralis-Pedis (L): 2+ Gastrointestinal/Abdominal: positive: Other (Midline abdominal TTP w/o peritoneal sign) Musculoskeletal: negative: CVA Tenderness (R), CVA Tenderness (L) Extremity: positive: Normal Capillary Refill, Normal Inspection Neurologic: positive: plaster molder II-XII NML intact, Fully Oriented, Alert <Katherine Milan - Last Filed: 05/31/19 01:42> Heart Score/ECG Review - ECG Impressions Comment:: 05/30/19 23:14 HR 81, no TONY/STD/TWI <Katherine Milan - Last Filed: 05/31/19 01:42> ED Treatment Course - LABORATORY CBC & Chemistry Diagram: 05/30/19 23:00 05/30/19 23:00 - ADDITIONAL ORDERS Additional order review: Laboratory Results 05/30/19 05/30/19 05/30/19 23:44 23:00 23:00 PT with INR INR PTT (Actin FS) Sodium 136 Potassium 4.2 Chloride 106 Carbon Dioxide 25 Anion Gap 4 L BUN 10.2 Creatinine 0.8 Est GFR (CKD-EPI)AfAm 104.65 Est GFR (CKD-EPI)NonAf 90.30 Random Glucose 106 Calcium 8.8 Total Bilirubin 0.6 AST 27 ALT 27 Alkaline Phosphatase 74 Total Protein 7.1 Albumin 3.6 Lipase 167 Stool Occult Blood Negative Blood Type O POSITIVE Antibody Screen Negative 05/30/19 05/30/19 23:00 23:00 PT with INR 11.80 INR 1.00 PTT (Actin FS) 30.4 Sodium Potassium Chloride Carbon Dioxide Anion Gap BUN Creatinine Est GFR (CKD-EPI)AfAm Est GFR (CKD-EPI)NonAf Random Glucose Calcium Total Bilirubin AST ALT Alkaline Phosphatase Total Protein Albumin Lipase Stool Occult Blood Blood Type Antibody Screen 05/30/19 23:00 RBC 4.18 MCV 80.4 MCHC 31.7 L RDW 15.9 H MPV 7.8 Neutrophils % 69.7 Lymphocytes % 19.7 Monocytes % 8.7 Eosinophils % 1.3 D Basophils % 0.6 - Medications Given in the ED: ED Medications Discontinued Medications Generic Name Dose Route Start Last Admin Trade Name Judy PRN Reason Stop Dose Admin Al Hydroxide/Mg Hydroxide 30 ml 05/30/19 23:52 05/31/19 00:07 Mylanta Suspension - PO 05/30/19 23:53 30 ml ONCE ONE Administration Famotidine/Sodium Chloride 20 mg in 50 mls @ 100 mls/hr 05/30/19 23:52 00:07 Pepcid 20 Mg Premixed Ivpb - IVPB 05/31/19 00:21 100 mls/hr ONCE ONE Administration Pantoprazole Sodium 40 mg 05/30/19 23:03 05/30/19 23:17 Protonix Iv IVPUSH 05/30/19 23:04 40 mg ONCE ONE Administration Sodium Chloride 1,000 ml 05/30/19 23:03 05/30/19 23:17 Normal Saline - IV 05/30/19 23:04 1,000 ml ONCE ONE Administration <Phuong Neal - Last Filed: 05/31/19 00:42> - LABORATORY CBC & Chemistry Diagram: 05/30/19 23:00 05/30/19 23:00 <Katherine Milan - Last Filed: 05/31/19 01:42> Medical Decision Making - Medical Decision Making 05/30/19 22:55 43 year old female with h/o mesenteric adenitis, gastric bypass with two episodes of hematemesis. VS unremarkable Will evaluate for UGI including CBC, FOBT. Also consider gastroenteritis, pancreatitis, Boorhave's , PUD, H. Pylori. Will administer IV fluids and Protonix 05/30/19 23:41 Hb stable 05/30/19 23:51 No gross blood on rectal exam 05/31/19 00:00 CMP unremarkable FOBT negative Lipase pending 05/31/19 00:09 Patient reassessed @ bedside, continues to c/o pain, no emesis while in ED. GI cocktail 05/31/19 01:31 Patient reassessed @ bedside symptomatically improved s/p GI cocktail. CXR negative for esophageal perforation, Lipase negative. At this time, patient is clinically stable, requires further evaluation as outpatient including EGD. Will discharge home with supportive care and instruction to f/u with GI as previously scheduled. I discussed the physical exam findings, ancillary test results and final diagnoses with the patient. I answered all of the patient's questions. The patient was satisfied with the care received and felt comfortable with the discharge plan and treatment plan. The patient will return to the Emergency Department with any new, persistent or worsening symptoms. <Katherine Milan - Last Filed: 05/31/19 01:42> Discharge - Discharge Information Problems reviewed: Yes - Admission No <Phuong Neal - Last Filed: 05/31/19 00:42> - Discharge Information Problems reviewed: Yes <Katherine Milan - Last Filed: 05/31/19 01:42> - Discharge Information Clinical Impression/Diagnosis: Epigastric abdominal pain Condition: Good Disposition: HOME - Additional Discharge Information Prescriptions: Mag Hydrox/Al Hydrox/Simeth [Mylanta Suspension -] 30 ml PO Q6H #1 bottle Ondansetron [Zofran *Odt*] 4 mg SL BID PRN 3 Days #6 od.tablet PRN Reason: Nausea And/Or Vomiting - Follow up/Referral Referrals: Mahesh Kearney MD [Primary Care Provider] - Bayron Min MD [Staff Physician] - - Patient Discharge Instructions Patient Printed Discharge Instructions: DI for Abdominal Pain-Adult, DI for Constipation Additional Instructions: Please follow-up with your GI doctor tomorrow as scheduled. Your care is not complete until you are evaluated by a GI doctor. We have provided instructions on how to treat/prevent constipation. This includes eating high fiber foods and drinking plenty of water. We have sent a prescription to your pharmacy. Please take medications as directed. Return to the Emergency Department for any new/worsening/concerning symptoms. Print Language: EMIRATI
[2019-05-30 22:54] VITALS: TEMP 98.3; BMI 34.7
[2019-05-30] MEDS ORDERED: PANTOPRAZOLE SODIUM 40 MG VIAL IVPUSH ONE (23:03)
[2019-05-30] MEDS ORDERED: SODIUM CHLORIDE 0.9% 500 ML INFUS.BAG IV ONE (23:03)
--- NOTE | 2019-05-30 23:05 | PDOC ---
Attending Attestation - Resident Resident Name: Katherine Milan - ED Attending Attestation I have performed the following: I have examined & evaluated the patient, The case was reviewed & discussed with the resident, I agree w/resident's findings & plan - HPI HPI: 05/30/19 23:04 43 yo F with h/o appendectomy, cholecystectomy, BL tubal ligation, fibroids, gastric bypass (2006) who p/w 2 weeks of intermittent lower abdominal pain, n/v and hemetemesis (10pm tonight), she has been experiencing mid abdominal pain, radiating to back. No alleviating or exacerbating factors. drank some HiC - red colored this afternoon. initial 3 episodes of NBNB emesis, then on the 4th emesis, +blood/red colored but no coffee ground.. Here 3 days ago in the ED, CT scan with mesenteric haziness, likely mesenteric adenitis - told to f/u her [facility] f/u PMD yesterday, started on tylenol for pain. Last PO intake of food 7pm Last BM this morning 10AM, used Mag citrate for hard stooling this morning - denies bloody stools. has been having constipation, trying sennakot/mag citrate/ fiber diet, with minimal relief. Colonoscopy and EGD several years ago (2015), recalls no remarkable findings. awaiting to see her GI for EGD as outpatient - Dr Min appt tomorrow 05/31/19 00:39 05/31/19 00:43 - Physicial Exam PE: 05/30/19 23:03 Agree with the resident's HPI and PE as documented in the electronic medical record. NAD, well appearing, EOMI, PERRL, nl conjunctiva, anicteric; neck supple. lungs clear, no respiratory distress. RRR, abdomen soft +mid abdominal TTP, no rebound, guarding. Back nontender. no CVAT. MORGAN x4, no focal neuro deficits. No peripheral edema. normal color for ethnicity, WW. 05/31/19 00:44 - Medical Decision Making 05/30/19 23:04 Vital Signs Temp Pulse Resp BP Pulse Ox 98.3 F 92 H 20 125/82 97 05/30/19 22:30 05/30/19 22:30 05/30/19 22:30 05/30/19 22:30 05/30/19 22:30 VS reviewed, wnl. normotensive, nontoxic appearing, afebrile, no systemic findings. Laboratory results are reviewed within normal limits, no white count, no systemic features noted. LFTs and lipase also unremarkable, no evidence of pancreatitis or hepatitis. Stool guaiac is also negative so no evidence of GI bleed. could likely be n/v inducing fay lyons tear vs drinking Hi-C (red juice) today; no e/o to suggest boarhaave's or perf. abdomen no peritoneal findings. recent imaging from 3 days ago with likely mesenteric adenitis, less likely malignancy, has GI f/u for EGD/colonoscopy, so told to keep appt for tomorrow with Dr Min, for definitive management. Empirically given PPI, can follow with GI as an outpatient. stable for discharge, pt made aware of impression and plan. instructions on prn zofran for nausea maalox/mylanta prn for the heart burn, PPI has GI followup tmw, Dr Min. Pt to be discharged in stable condition. Patient and family made aware of clinical impression, treatment recommendations and disposition plan, return precautions discussed (including but not limited to new or persistent/worsening symptoms, pain, fevers, or signs of infection, chest pain, respiratory distress , inability to tolerate oral intake, dehydration, syncope, or neurologic changes ). Follow up with PMD and/or specialist as recommended, follow up information provided, take medications as instructed for duration of time. continue with supportive care, avoid triggers and precipitants. All questions answered to patient's satisfaction and expressed understanding and comfort with this. At the time of discharge, the patient is alert, clinically improved, tolerating po and verbalizes understanding of instructions, satisfied with the care received and felt comfortable with the plan. Patient does not suffer from an acute life- threatening medical condition at this time and is safe for outpatient follow- up. 05/31/19 00:38 05/31/19 00:44 Heart Score/ECG Review #1 ECG reviewed & interpreted by me at: 23:10 General ECG Interpretation: Sinus Rhythm, Normal Rate, Normal Intervals Compared to previous ECG there are: No significant change 05/30/19 23:14 EKG normal sinus rhythm at 81 bpm, no interval abnormalities, narrow QRS, ST and T wave segments and morphology normal. Nonspecific T wave abnormalities
[2019-05-30] MEDS ORDERED: PANTOPRAZOLE SODIUM 40 MG VIAL ONE (23:09)
[2019-05-30 23:18] LABS: BASO % 0.6 % (0-2.0); EOS % 1.3 % (0-4.5); HEMATOCRIT 33.6 % (32.4-45.2); HEMOGLOBIN 10.7 GM/dL (10.7-15.3); LYMPH % 19.7 % (8-40); MCH 25.5 pg (25.7-33.7); MCHC 31.7 g/dl (32.0-36.0); MEAN CELL VOLUME 80.4 fl (80-96); MEAN PLT VOLUME 7.8 fl (7.5-11.1); MONO % 8.7 % (3.8-10.2); NEUT % 69.7 % (42.8-82.8); PLATELET COUNT 312 K/MM3 (134-434); RBC 4.18 M/mm3 (3.60-5.2); RDW 15.9 % (11.6-15.6); WHITE BLOOD COUNT 5.7 K/mm3 (4.0-10.0)
[2019-05-30] MEDS ORDERED: MAG HYDROX/AL HYDROX/SIMETH -MYLANTA- ORAL SUSPENSION PO ONE (23:52)
[2019-05-30] MEDS ORDERED: FAMOTIDINE 20 MG/50 ML IVPB 20 MG/50 ML MG IVPB ONE ×2 (23:52→23:56)
[2019-05-30 23:55] LABS: ALBUMIN 3.6 g/dl (3.4-5.0); BILIRUBIN,TOTAL 0.6 mg/dL (0.2-1); BLOOD UREA NITROGEN 10.2 mg/dL (7-18); CALCIUM 8.8 mg/dL (8.5-10.1); CREATININE 0.8 mg/dL (0.55-1.3); POTASSIUM 4.2 mmol/L (3.5-5.1); PROTHROMBIN TIME (PATIENT) 11.8 SEC (9.7-13.0); TOT PROT 7.1 g/dl (6.4-8.2)
[2019-05-30] MEDS ORDERED: MAG HYDROX/AL HYDROX/SIMETH 30 ML UNIT-DOSE CUP ONE (23:56)
[2019-05-31 01:40] VITALS: BP 126/86; PULSE 82
--- NOTE | 2019-05-31 12:38 | EKG ---
Test Reason : Blood Pressure : / mmHG Vent. Rate : 081 BPM Atrial Rate : 081 BPM P-R Int : 144 ms QRS Dur : 080 ms QT Int : 374 ms P-R-T Axes : 067 032 055 degrees QTc Int : 434 ms SINUS RHYTHM WITH PREMATURE ATRIAL COMPLEXES CANNOT RULE OUT ANTERIOR INFARCT , AGE UNDETERMINED ABNORMAL ECG WHEN COMPARED WITH ECG OF 25-MAY-2018 00:21, PREMATURE ATRIAL COMPLEXES ARE NOW PRESENT Confirmed by MARICRUZ VILLARREAL, MIRANDA ([id number]) on 05/31/2019 12:38:10 PM Referred By: Confirmed By:MIRANDA ALCANTARA MD
== END 2019-05-31 01:38 | disposition home or self-care (01) ==
LOC: JER 22:24
PROC: 3E033GC Introduction of Other Therapeutic Substance into Peripheral Vein, Percutaneous Approach (ICD-10-PCS; principal; 2019-05-30)
DX: R10.13 Epigastric pain (principal); Z98.84 Bariatric surgery status; E11.9 Type 2 diabetes mellitus without complications; Z91.011 Allergy to milk products; Z86.73 Personal history of transient ischemic attack (TIA), and cerebral infarction without residual deficits; Z88.0 Allergy status to penicillin
CPT/HCPCS: 36415; 71046-TC-FY; 80053; 82272; 83690; 85025; 85610; 85730; 86850; 86900; 86901; 93005; 93010; 99283-25

== ENCOUNTER 2020-04-25 11:53 | Emergency (ER) | payer OTHER ==
[2020-04-25 11:59] VITALS: TEMP 98.2; BMI 32.9
--- OUTSIDE RECORDS SUMMARY | 2020-04-25 12:26 | XMS ---
:1975 Author Organization [facility] Support Name Relationship Address Phone CAB Unavailable [address] [place] [address] [place] [address] YADIRA LENTZ FRIEND [address] [facility] [place] [address] NILA CALLOWAY SON [address] [facility] [address] [place] [address] Re-disclosure Warning The records that you are about to access may contain information from federally- assisted alcohol or drug abuse programs. If such information is present, then the following federally mandated warning applies: This information has been disclosed to you from records protected by federal confidentiality rules (42 CFR part 2). The federal rules prohibit you from making any further disclosure of this information unless further disclosure is expressly permitted by the written consent of the person to whom it pertains or as otherwise permitted by 42 CFR part 2. A general authorization for the release of medical or other information is NOT sufficient for this purpose. The Federal rules restrict any use of the information to criminally investigate or prosecute any alcohol or drug abuse patient.The records that you are about to access may contain highly sensitive health information, the redisclosure of which is protected by Article 27-F of the [facility] Public Health law. If you continue you may haveaccess to information: Regarding HIV / AIDS; Provided by facilities licensed or operated by the [facility] Office of Mental Health; or Provided by the [facility] Office for People With Developmental Disabilities. If such information is present, then the following [facility] mandated warning applies: This information has been disclosed to you from confidential records which are protected by state law. State law prohibits you from making any further disclosure of this information without the specific written consent of the person to whom it pertains, or as otherwise permitted by law. Any unauthorized further disclosure in violation of state law may result in a fine or chcf sentence or both. A general authorization for the release of medical or other information is NOT sufficient authorization for further disclosure. Insurance Providers Payer name Policy type Policy ID Covered Covered democrat's Policy P lisa / Coverage democrat ID relationship to Hern[place] Inf ormation type hernández LOCAL [id number] SP [id number] [employer] SELF PAY SP INSURANCE [facility] [id number] SP [id number] COMPANIES [facility] [id number] SP [id number] [id number] SP [id number] [facility] Writer's Bloq [facility] PENDING WC/NF [id number] SP [id number] [id number] SP [id number] [facility] Results ID Date Data Source [id number] 04/16/2020 07:58:00 AM EDT [facility] Name Value Range Interpretation Code Description Data Ericka rce(s) Supporting Document(s ) HOLOGIC [facility] SARS-CoV-2 TMA PCR This lab was ordered by AmmadoDIMA CANNON and reported by [employer]. ID Date Data Source [id number] 04/02/2020 09:02:00 AM EDT [facility] Name Value Range Interpretation Code Description Data Ericka rce(s) Supporting Document(s ) HOLOGIC [facility] SARS-CoV-2 TMA PCR This lab was ordered by AmmadoDIMA CANNON and reported by [employer]. ID Date Data Source [id number] 03/26/2020 08:01:00 AM EDT [facility] Name Value Range Interpretation Code Description Data Ericka rce(s) Supporting Document(s ) HOLOGIC [facility] SARS-CoV-2 TMA PCR This lab was ordered by AmmadoDIMA ATG AccessJOSEPHINE and reported by [employer]. ID Date Data Source [id number] 03/19/2020 08:42:00 AM EDT [facility] Name Value Range Interpretation Code Description Data Ericka rce(s) Supporting Document(s ) HOLOGIC [facility] SARS-CoV-2 TMA PCR This lab was ordered by AmmadoDIMA [employer] and reported by [employer]. ID Date Data Source [id number] 02/11/2020 03:05:00 AM EDT [facility] Name Value Range Interpretation Code Description Data Ericka rce(s) Supporting Document(s ) SARS-CoV-2 [facility] , RNA This lab was ordered by Ramblers WayALEJANDRA CANNON and reported by [employer]. ID Date Data Source [id number] 02/06/2020 11:10:00 AM EDT [facility] Name Value Range Interpretation Description Data Sup porting Code Source(s) Document(s ) SARS [facility] coronavirus 2 RNA This lab was ordered by [facility] and reported by [facility]. ID Date Data Source [id number] 02/04/2020 09:46:00 AM EDT [facility] Name Value Range Interpretation Code Description Data Ericka rce(s) Supporting Document(s ) SARS-CoV-2 [facility] , RNA This lab was ordered by Ramblers WayALEJANDRA CANNON and reported by [employer]. ID Date Data Source [id number] 01/28/2020 04:07:00 PM EDT [facility] Name Value Range Interpretation Code Description Data Ericka rce(s) Supporting Document(s ) SARS-CoV-2 [facility] , RNA This lab was ordered by Ramblers WayALEJANDRA CANNON and reported by [employer]. ID Date Data Source [id number] 01/21/2020 02:38:00 AM EDT [facility] Name Value Range Interpretation Code Description Data Ericka rce(s) Supporting Document(s ) SARS-CoV-2 [facility] , RNA This lab was ordered by Ramblers WayALEJANDRA CANNON and reported by [employer]. ID Date Data Source [id number] 01/14/2020 03:01:00 AM EDT [facility] Name Value Range Interpretation Code Description Data Ericka rce(s) Supporting Document(s ) SARS-CoV-2 [facility] , RNA This lab was ordered by Ramblers WayALEJANDRA CANNON and reported by [employer]. ID Date Data Source [id number] 01/08/2020 02:56:00 AM EDT [facility] Name Value Range Interpretation Code Description Data Ericka rce(s) Supporting Document(s ) SARS-CoV-2 [facility] , RNA This lab was ordered by Ramblers WayALEJANDRA CANNON and reported by [employer]. ID Date Data Source [id number] 12/31/2019 03:14:00 AM EDT [facility] Name Value Range Interpretation Code Description Data Ericka rce(s) Supporting Document(s ) SARS-CoV-2 [facility] , RNA This lab was ordered by AmmadoDIMA SOLOJOSEPHINE and reported by [employer]. ID Date Data Source [id number] 12/25/2019 02:57:00 PM EDT [facility] Name Value Range Interpretation Code Description Data Ericka rce(s) Supporting Document(s ) SARS-CoV-2 [facility] , RNA This lab was ordered by AmmadoDIMA CANNON and reported by [employer]. ID Date Data Source [id number] 12/21/2019 03:00:00 PM EDT [facility] Name Value Range Interpretation Code Description Data Ericka rce(s) Supporting Document(s ) SARS-CoV-2 [facility] , RNA This lab was ordered by [email or web address] DAVIS and reported by [employer]. ID Date Data Source [id number] 12/18/2019 03:11:00 PM EDT [facility] Name Value Range Interpretation Code Description Data Ericka rce(s) Supporting Document(s ) SARS-CoV-2 [facility] , RNA This lab was ordered by AmmadoDIMA CANNON and reported by [employer]. ID Date Data Source [id number] 12/14/2019 03:29:00 AM EDT [facility] Name Value Range Interpretation Code Description Data Ericka rce(s) Supporting Document(s ) SARS-CoV-2 [facility] , RNA This lab was ordered by AmmadoDIMA CANNON and reported by [employer]. ID Date Data Source [id number] 12/11/2019 02:28:00 AM EDT [facility] Name Value Range Interpretation Code Description Data Ericka rce(s) Supporting Document(s ) SARS-CoV-2 [facility] , RNA This lab was ordered by AmmadoDIMA CANNON and reported by [employer]. ID Date Data Source [id number] 12/05/2019 03:51:00 PM EDT [facility] Name Value Range Interpretation Code Description Data Ericka rce(s) Supporting Document(s ) SARS-CoV-2 [facility] , RNA This lab was ordered by [employer] and reported by [employer]. ID Date Data Source [id number] 10/24/2019 12:00:00 AM EDT [facility] Name Value Range Interpretation Code Description Data Ericka rce(s) Supporting Document(s ) 2019-nCoV [facility] RNA XXX EVELIA+probe- Imp This lab was [facility] by [facility] and reported by [employer] Procedure
--- NOTE | 2020-04-25 12:46 | PDOC ---
History of Present Illness - General Chief Complaint: Chest Pain Stated Complaint: Palpitations Time Seen by Provider: 04/25/20 12:10 History Source: Patient, Old Records Exam Limitations: No Limitations - History of Present Illness Initial Comments: 04/25/20 12:39 HISTORY OF PRESENT ILLNESS: 44-year-old woman past medical history of gastric bypass, cholecystectomy, appendectomy, breast reduction with a DVT earlier this year presents emergency department for evaluation of left-sided chest pressure radiating to her left arm rated 8/10 over the past 9 days. Patient is unable to identify any aggravating or alleviating factors. Patient was seen and evaluated by her PMD who referred her to cardiology where she has an appointment on 05/15. Patient's PMD was concerned that she needed a stress test but did not schedule the test without cardiology evaluation. She denies nausea, vomiting, shortness of breath, cough, fevers, chills abdominal pain. She denies dyspnea on exertion or difficulty climbing inclines or stairs. No recent travel or sick contacts. PAST MEDICAL HISTORY: DVT 2020, SURGICAL HISTORY: Gastric bypass, cholecystectomy, appendectomy, breast reductio n ALLERGIES: Penicillin REVIEW OF SYSTEMS General/Constitutional: Denies fever or chills. Denies weakness, weight change. HEENT: Denies change in vision. Denies ear pain or discharge. Denies sore thr oat. Cardiovascular: See HPI Respiratory: Denies cough, wheezing, or hemoptysis. Gastrointestinal: Denies nausea, vomiting, diarrhea or constipation. Denies rectal bleeding. Genitourinary: Denies dysuria, frequency, or change in urination. Musculoskeletal: Denies joint or muscle swelling or pain. Denies neck or back pain. Skin and breasts: Denies rash or easy bruising. Neurologic: Denies headache, vertigo, loss of consciousness, or loss of sensation. Psychiatric: Denies depression or anxiety. Endocrine: Denies increased thirst. Denies abnormal weight change. Hematologic/Lymphatic: Denies anemia, easy bleeding, or history of blood clots. Allergic/Immunologic: Denies hives or skin allergy. Denies latex allergy. PHYSICAL EXAM General Appearance: Well-appearing, appropriately dressed. No apparent distress, no intoxication. HEENT: EOMI, PERRLA, normal ENT inspection, normal voice, TMs normal, pharynx normal. No conjunctival pallor. No photophobia, scleral icterus. Neck: Supple. Trachea midline. No tenderness, rigidity, carotid bruit, stridor, lymphadenopathy, or thyromegaly. Respiratory/Chest: Lungs CTAB. No shortness of breath, chest tenderness, respiratory distress, accessory muscle use. No crackles, rales, rhonchi, stridor, wheezing, dullness Cardiovascular: RRR. S1, S2. No JVD, murmur, bradycardia, tachycardia. No edema noted. Vascular Pulses: Dorsalis-Pedis (R): 2+, Dorsalis-Pedis (L): 2+ Gastrointestinal/Abdominal: Normal bowel sounds. Abdomen soft, non-distended. No tenderness or rebound tenderness. No organomegaly, pulsatile mass, guarding, hernia, hepatomegaly, splenomegaly. Musculoskeletal/Extremities: Normal inspection. FROM of all extremities, normal capillary refill. Pelvis Stable. No CVA tenderness. No tenderness to extremities, pedal edema, swelling, erythema or deformity. 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 Fully oriented, alert. Appropriate mood/affect. Motor strength 5/5. No appreciable EOM palsy, facial droop or sensory deficit. 04/25/20 12:42 Past History - Medical History Allergies/Adverse Reactions: Allergies Allergy/AdvReac Type Severity Reaction Status Date / Time Penicillins Allergy Intermediate Verified 04/25/20 11:55 Anemia: Yes Asthma: Yes Cancer: No Cardiac Disorders: No CVA: Yes (TIA 2016) COPD: No CHF: No Dementia: No Diabetes: No (but hypoglycemic sometimes) GI Disorders: Yes (lactose intolerant) Disorders: No HTN: No Hypercholesterolemia: No Liver Disease: No Psychiatric Problems: (Anxiety) Seizures: No Thyroid Disease: No - Surgical History Abdominal Surgery: Yes (GASTRIC BYPASS) Appendectomy: Yes Cardiac Surgery: No Cholecystectomy: Yes Gastric Stapling: (GASTRIC BYPASS) Lung Surgery: No Neurologic Surgery: No - Reproductive History Is Patient Now?: No (#): 5 Para: 2 Cervical CA: No Dysfunctional Uterine Bleeding: No Ectopic : No Endometrial CA: No Polycystic Ovaries: No Therapeutic (s) & number: No Tubal Ligation: No Spontaneous : 0 - Immunization History Td Vaccination: No Immunization Up to Date: Yes - Psycho-Social/Smoking History Smoking Status: No Smoking History: Never smoked Have you smoked in the past 12 months: No Number of Cigarettes Smoked Daily: 0 - Substance Abuse Hx (Audit-C & DAST Scrn) How often the patient has a drink containing alcohol: Monthly or less Number of drinks the patient has on a typical day: 1 or 2 How often the patient has six or more drinks on one occasion: Never Score: In Men: 4 or > Positive; In Women: 3 or > Positive: 1 Screen Result (Pos requires Nsg. Audit-10AR): Negative In the last yr the pt used illegal drug/Rx for NonMed reason: No Score: Yes response is considered Positive: 0 Screen Result (Positive result requires Nsg. DAST-10): Negative Cardiac Specific PMH - Complaint Specific PMHX GERD: No Pacemaker: No *Physical Exam - Vital Signs Last Vital Signs Temp Pulse Resp BP Pulse Ox 98.2 F 90 18 147/87 100 04/25/20 11:55 04/25/20 11:55 04/25/20 11:55 04/25/20 11:55 04/25/20 11:55 Heart Score/ECG Review - History History: Slightly suspicious - Electrocardiogram EKG: Normal - Age Age: </= 45 - Risk Factors Risk Factors Heart Score: Yes Hx Obesity Based on the list above the patient has:: 1-2 risk factors - Troponin Troponin: </= normal limit - Score Heart Score - Total: 1 - ECG Intrepretation Rhythm: Regular Rhythm - Adrian Adrian: Normal ED Treatment Course - LABORATORY CBC & Chemistry Diagram: 04/25/20 13:00 04/25/20 13:00 - ADDITIONAL ORDERS Additional order review: Laboratory Results 04/25/20 04/25/20 13:00 13:00 PT with INR 12.10 INR 1.03 PTT (Actin FS) 32.3 Sodium 139 Potassium 4.3 Chloride 105 Carbon Dioxide 27 Anion Gap 7 L BUN 13.6 Creatinine 0.8 Est GFR (CKD-EPI)AfAm 103.92 Est GFR (CKD-EPI)NonAf 89.66 Random Glucose 82 Calcium 9.3 Magnesium 2.1 Total Bilirubin 1.3 H AST 31 ALT 44 Alkaline Phosphatase 103 Creatine Kinase 175 Creatine Kinase Index 0.7 CK-MB (CK-2) 1.3 Troponin I < 0.02 Total Protein 7.6 Albumin 3.9 TSH 0.74 04/25/20 13:00 RBC 4.56 MCV 83.4 MCHC 32.2 RDW 18.2 H MPV 7.3 L Neutrophils % 53.2 D Lymphocytes % 34.2 D Monocytes % 9.7 Eosinophils % 1.7 Basophils % 1.2 - RADIOLOGY Radiology Studies Ordered: Category Date Time Status CHEST CTA [CT] Stat CT Scan 04/25/20 12:37 Completed Medical Decision Making - Medical Decision Making 04/25/20 12:44 A/P: 44-year-old woman with left-sided chest pressure for 9 days radiating to her left shoulder Differential diagnosis includes but is not limited to- ACS, pneumonia, GERD, pulmonary embolism, musculoskeletal pain, gastritis Cardiac work-up including cardiac profile and TSH CTA of the chest to rule out pulmonary embolism as patient had unprovoked DVT earlier this year EKG Defer aspirin as patient took 325 mg earlier today Reassess If testing is negative will discharge to follow-up with cardiology as previously scheduled 04/25/20 12:46 04/25/20 15:17 Laboratory Tests 04/25/20 04/25/20 04/25/20 13:00 13:00 13:00 WBC 4.0 RBC 4.56 Hgb 12.2 Hct 38.0 MCV 83.4 MCH 26.8 MCHC 32.2 RDW 18.2 H Plt Count 363 MPV 7.3 L Absolute Neuts (auto) 2.1 Neutrophils % 53.2 D Lymphocytes % 34.2 D Monocytes % 9.7 Eosinophils % 1.7 Basophils % 1.2 Nucleated RBC % 0 PT with INR 12.10 INR 1.03 PTT (Actin FS) 32.3 Sodium 139 Potassium 4.3 Chloride 105 Carbon Dioxide 27 Anion Gap 7 L BUN 13.6 Creatinine 0.8 Est GFR (CKD-EPI)AfAm 103.92 Est GFR (CKD-EPI)NonAf 89.66 Random Glucose 82 Calcium 9.3 Magnesium 2.1 Total Bilirubin 1.3 H AST 31 ALT 44 Alkaline Phosphatase 103 Creatine Kinase 175 Creatine Kinase Index 0.7 CK-MB (CK-2) 1.3 Troponin I < 0.02 Total Protein 7.6 Albumin 3.9 TSH 0.74 EKG sinus rhythm with rate of 100. Normal intervals present. Normal axis. No T wave inversions, ST elevations or depressions present. CTA to rule out PE as read by Dr. Galindo: No pulmonary embolism is identified. No aortic aneurysm is identified. 0.3 mm renal calculi presents in the midpole of the right kidney. Otherwise unremarkable. As patient's initial troponin is negative and she has had the pain for 9 days I feel to discharge home to follow-up with the women's activities adviser as previously scheduled. I discussed the physical exam findings, ancillary test results and final diagnoses with the patient. I answered all of the patient's questions. The pat ient was satisfied with the care received and felt comfortable with the discharge plan and treatment plan. The patient will call their primary care physician within 24 hours to arrange follow-up and will return to the Emergency Department with any new, persistent or worsening symptoms. Portions of this note have been documented using voice recognition software. As a result, errors may occur in the computer support specialist process. Effort has been made to correct all grammatical and computer support specialist error, but some may have been missed which may produce sporadic inaccurate computer support specialist or nonsensical phrases. Discharge - Discharge Information Problems reviewed: Yes Clinical Impression/Diagnosis: Chest pain Qualifiers: Chest pain type: unspecified Qualified Code(s): R07.9 - Chest pain, unspecified Condition: Fair Disposition: HOME - Admission No - Follow up/Referral Referrals: Mahesh Kearney MD [Primary Care Provider] - - Patient Discharge Instructions Patient Printed Discharge Instructions: DI for Chest Pain Additional Instructions: Your CAT scan today showed no evidence of abnormalities with the main blood vessel in your body as well as the blood vessels in your lungs. You do have a small kidney stone which is in the right kidney which should not be causing any problems. It is important that you keep the appointment with your women's activities adviser as previously scheduled for continued evaluation of your pain. Your troponin which is a cardiac enzyme today is negative. Return to the emergency department for new or worsening symptoms. Thank you very much for choosing us to provide your emergent healthcare needs. - Post Discharge Activity Work/Back to School Note: Back to Work
[2020-04-25 13:20] LABS: BASO % 1.2 % (0-2.0); EOS % 1.7 % (0-4.5); HEMOGLOBIN 12.2 GM/dL (10.7-15.3); LYMPH % 34.2 % (8-40); MCH 26.8 pg (25.7-33.7); MCHC 32.2 g/dl (32.0-36.0); MEAN CELL VOLUME 83.4 fl (80-96); MEAN PLT VOLUME 7.3 fl (7.5-11.1); MONO % 9.7 % (3.8-10.2); NEUT % 53.2 % (42.8-82.8); PLATELET COUNT 363 K/MM3 (134-434); RBC 4.56 M/mm3 (3.60-5.2); RDW 18.2 % (11.6-15.6)
[2020-04-25 13:42] LABS: ACTIVATED PTT 32.3 SECONDS (25.2-36.5)
[2020-04-25 13:59] LABS: INR 1.03 (0.83-1.09); PROTHROMBIN TIME (PATIENT) 12.1 SEC (9.7-13.0)
[2020-04-25 14:12] LABS: ALBUMIN 3.9 g/dl (3.4-5.0); ALK PHOS 103 U/L (45-117); ANION GAP 7 MMOL/L (8-16); BILIRUBIN,TOTAL 1.3 mg/dL (0.2-1); BLOOD UREA NITROGEN 13.6 mg/dL (7-18); CALCIUM 9.3 mg/dL (8.5-10.1); CHLORIDE 105 mmol/L (98-107); CO2 27 mmol/L (21-32); CREATININE 0.8 mg/dL (0.55-1.3); GLUCOSE,RANDOM 82 mg/dL (74-106); MAGNESIUM 2.1 mg/dL (1.8-2.4); POTASSIUM 4.3 mmol/L (3.5-5.1); SGOT/AST 31 U/L (15-37); SGPT/ALT 44 U/L (13-61); SODIUM 139 mmol/L (136-145); TOT PROT 7.6 g/dl (6.4-8.2)
--- NOTE | 2020-04-25 14:46 | EKG ---
Test Reason : Blood Pressure : / mmHG Vent. Rate : 090 BPM Atrial Rate : 090 BPM P-R Int : 134 ms QRS Dur : 070 ms QT Int : 346 ms P-R-T Axes : 074 053 046 degrees QTc Int : 423 ms NORMAL SINUS RHYTHM NORMAL ECG WHEN COMPARED WITH ECG OF 30-MAY-2019 23:09, PREMATURE ATRIAL COMPLEXES ARE NO LONGER PRESENT T WAVE INVERSION NOW EVIDENT IN ANTERIOR LEADS Confirmed by JUAN FRANCISCO VILLARREAL, JOSÉ ANTONIO ([id number]) on 04/25/2020 2:46:25 PM Referred By: Confirmed By:JOSÉ ANTONIO CHICAS MD
[2020-04-25 15:31] VITALS: BP 133/75; PULSE 70
== END 2020-04-25 15:31 | disposition home or self-care (01) ==
LOC: JER 11:53 → SUPCPDRO 11:53 → JER 15:31
DX: R07.9 Chest pain, unspecified (principal)
CPT/HCPCS: 36415; 71275-TC; 80053; 82550; 82553; 83735; 84443; 84484; 85025; 85610; 85730; 93005; 93010; 99285-25; Q9967

== ENCOUNTER 2020-06-03 12:03 | Emergency (ER) | payer OTHER ==
[2020-06-03 12:14] VITALS: BP 137/86; PULSE 80; TEMP 97.4; BMI 31.8
[2020-06-03] MEDS ORDERED: LIDOCAINE 5% TOPICAL PATCH TP ONE (12:32)
[2020-06-03] MEDS ORDERED: ACETAMINOPHEN 325 MG TABLET (FP) PO ONE (12:32)
[2020-06-03] MEDS ORDERED: LIDOCAINE 5% TOPICAL PATCH ONE (12:50)
[2020-06-03] MEDS ORDERED: ACETAMINOPHEN 325 MG TABLET (FP) ONE (12:50)
[2020-06-03] MEDS ORDERED: LIDOCAINE PATCH REMOVAL MC SCH (22:00)
== END 2020-06-03 13:58 | disposition home or self-care (01) ==
LOC: FER 12:03
DX: M70.72 Other bursitis of hip, left hip (principal); S76.012A Strain of muscle, fascia and tendon of left hip, initial encounter
CPT/HCPCS: 73502-TC-LT-FY; 93005; 99285-25

== ENCOUNTER 2020-06-06 21:00 | Emergency (ER) | payer OTHER ==
[2020-06-06 21:11] VITALS: BP 146/92; PULSE 88; TEMP 99; BMI 32.8
[2020-06-06] MEDS ORDERED: SODIUM CHLORIDE 1,000 ML IV STA (21:34)
[2020-06-06] MEDS ORDERED: KETOROLAC TROMETHAMINE 30 MG/1 ML VIAL IVPUSH ONE (21:34)
[2020-06-06] MEDS ORDERED: KETOROLAC TROMETHAMINE 30 MG/1 ML VIAL ONE (21:42)
[2020-06-06 21:43] LABS: URIC ACID CRYSTALS 2+ /hpf (NONE SEEN)
[2020-06-06 21:52] LABS: BASO % 1.1 % (0-2.0); EOS % 2.1 % (0-4.5); HEMATOCRIT 37.2 % (32.4-45.2); HEMOGLOBIN 11.5 GM/dl (10.7-15.3); LYMPH % 42.4 % (8-40); MCH 27.1 pg (25.7-33.7); MCHC 30.9 g/dl (32.0-36.0); MEAN PLT VOLUME 8.1 fl (7.5-11.1); MONO % 9.3 % (3.8-10.2); NEUT % 45.1 % (42.8-82.8); PLATELET COUNT 307 K/MM3 (134-434); RBC 4.23 M/mm3 (3.60-5.2); RDW 15.6 % (11.6-15.6); WHITE BLOOD COUNT 4.1 K/mm3 (4.0-10.8)
[2020-06-06 22:07] LABS: ALBUMIN 3.9 g/dl (3.4-5.0); BILIRUBIN,TOTAL 0.8 mg/dl (0.2-1); CALCIUM 8.7 mg/dl (8.5-10); CREATININE 0.8 mg/dl (0.55-1.3); POTASSIUM 4.3 mmol/L (3.5-5.1)
[2020-06-06] MEDS ORDERED: HYDROmorphone HCL CARPU-JECT 1 MG/1 ML DISP.SYRIN IVPUSH ONE (23:18)
[2020-06-06] MEDS ORDERED: HYDROmorphone HCL/PF 1 MG/ML VIAL ONE (23:20)
== END 2020-06-07 00:56 | disposition home or self-care (01) ==
LOC: FER 21:00
PROC: 3E033NZ Introduction of Analgesics, Hypnotics, Sedatives into Peripheral Vein, Percutaneous Approach (ICD-10-PCS; principal; 2020-06-06)
PROC: 3E0333Z Introduction of Anti-inflammatory into Peripheral Vein, Percutaneous Approach (ICD-10-PCS; 2020-06-06)
PROC: 3E0337Z Introduction of Electrolytic and Water Balance Substance into Peripheral Vein, Percutaneous Approach (ICD-10-PCS; 2020-06-06)
DX: R10.84 Generalized abdominal pain (principal)
CPT/HCPCS: 36415; 74176-TC; 80053; 81003; 81015; 84703; 85025; 99284-25

== ENCOUNTER 2021-10-14 12:32 | Emergency (ER) | payer OTHER ==
[2021-10-14 13:00] VITALS: BP 144/98; PULSE 81; TEMP 97.9; BMI 31.8
[2021-10-14] MEDS ORDERED: IBUPROFEN 400 MG TABLET (FP) PO ONE ×2 (14:07→14:10)
== END 2021-10-14 15:00 | disposition home or self-care (01) ==
LOC: FER 12:32
DX: R07.9 Chest pain, unspecified (principal)
CPT/HCPCS: 71046-TC-FY; 99283-25

== ENCOUNTER 2023-06-25 22:45 | Emergency (ER) | payer SELFPAY ==
[2023-06-25 22:52] VITALS: RESP 19; BMI 33.5
[2023-06-25] MEDS ORDERED: KETOROLAC TROMETHAMINE 60 MG/2 ML VIAL IM ONE (22:55)
[2023-06-25] MEDS ORDERED: METOCLOPRAMIDE HCL 10 MG TABLET (FP) PO ONE ×2 (22:55→22:58)
[2023-06-25] MEDS ORDERED: KETOROLAC TROMETHAMINE 60 MG/2 ML VIAL ONE (22:58)
[2023-06-25 23:54] VITALS: BP 144/93; PULSE 96; TEMP 98.5
== END 2023-06-26 00:01 | disposition home or self-care (01) ==
LOC: FER 22:45
PROC: 3E0233Z Introduction of Anti-inflammatory into Muscle, Percutaneous Approach (ICD-10-PCS; principal; 2023-06-25)
DX: U07.1 COVID-19 (principal); G43.909 Migraine, unspecified, not intractable, without status migrainosus
CPT/HCPCS: 0241U-QW; 99284-25